=== PATIENT | female | born 1980 | race Caucasian/White ===

== ENCOUNTER 2016-10-18 18:54 | Emergency (ER) | payer MEDICARE ==
[2016-10-18 19:29] LABS: Basophils # (A) 0.1 k/uL (0-0.2); Basophils % (A) 1 %; CH 31.2; CHCM 34.2; Eosinophils # (A) 0.3 k/uL (0-0.7); Eosinophils % (A) 2 %; HCT 41.6 % (34.0-46.0); HDW 2.47; Luc # (Auto) 0.23; Luc % (Auto) 2; Lymphocytes # (A) 3.5 k/uL (1.0-4.8); Lymphocytes % (A) 31 %; MCH 30.9 pg (25.0-35.0); MCHC 33.7 g/dL (31.0-37.0); MCV 91.8 fL (80.0-100.0); Mean Platelet Volume 7.7; Monocytes # (A) 0.6 k/uL (0-1.0); Monocytes % (A) 5 %; Neutrophils # (A) 6.6 k/uL (1.3-7.7); Neutrophils % (A) 58 %; RBC 4.53 m/uL (3.80-5.40); RDW 13.2 % (11.5-15.5); WBC 11.3 k/uL (3.8-10.6); WBC (Perox) 11.61
--- NOTE | 2016-10-18 19:32 | ED ---
Chest Pain HPI - General Chief Complaint: Chest Pain Stated Complaint: chest pain Time Seen by Provider: 10/18/16 19:11 Source: patient, EMS Mode of arrival: EMS Limitations: no limitations - History of Present Illness Initial Comments: This patient is 36-year-old woman who presents to be evaluated for substernal chest pains that she describes as sharp. The pain is been present for about a week but became worse after 1 PM today when she had eaten. the patient does note that given the chest pains she has been having she had a stress test done 2 days ago at the [facility]. She was not told the results of this. The pain this afternoon has been moderate intensity, constant, without worsening or relieving factors. She has not had associated symptoms. MD Complaint: chest pain Onset/Timin -: week(s) Onset: after eating Pain Location: substernal Pain Radiation: none Severity: moderate Quality: sharp Consistency: constant Improves With: nothing Worsens With: nothing Treatments Prior to Arrival: aspirin, nitroglycerin - Related Data Home Medications Medication Instructions Recorded Confirmed Gabapentin [Neurontin] 300 mg PO HS 04/23/16 10/18/16 Ibuprofen [Motrin] 800 mg PO TID PRN 04/23/16 10/18/16 LORazepam [Ativan] 0.5 mg PO DAILY PRN 10/18/16 10/18/16 Levothyroxine Sodium [Synthroid] 125 mcg PO DAILY 10/18/16 10/18/16 Metoprolol Succinate (ER) [Toprol 25 mg PO DAILY 10/18/16 10/18/16 Xl] SUMAtriptan SUCCINATE [Imitrex] 100 mg PO BID PRN 10/18/16 10/18/16 Allergies Allergy/AdvReac Type Severity Reaction Status Date / Time house dust Allergy Itching Verified 10/18/16 19:58 shellfish derived [Shrimp] Allergy Anaphylaxis Verified 10/18/16 19:58 Review of Systems ROS Statement: Those systems with pertinent positive or pertinent negative responses have been documented in the HPI. ROS Other: All systems not noted in ROS Statement are negative. Constitutional: Denies: fever, chills Respiratory: Denies: cough, dyspnea Cardiovascular: Reports: chest pain. Denies: palpitations, edema, syncope Gastrointestinal: Denies: abdominal pain, nausea, vomiting Genitourinary: Denies: dysuria, hematuria Musculoskeletal: Denies: back pain Skin: Denies: rash Neurological: Denies: headache, weakness, numbness EKG Findings - EKG Results: EKG: interpreted by DEBBIE MURGUIA, sinus rhythm, normal axis, normal QRS, normal ST/ T, no acute changes Past Medical History Past Medical History: Thyroid Disorder Additional Past Medical History / Comment(s): charimalformation, graves disease History of Any Multi-Drug Resistant Organisms: None Reported Past Surgical History: Orthopedic Surgery, Tonsillectomy Additional Past Surgical History / Comment(s): thyroidectomy Past Psychological History: Anxiety, Depression Smoking Status: Current every day smoker Past Alcohol Use History: None Reported Past Drug Use History: None Reported General Exam Limitations: no limitations General appearance: alert, in no apparent distress Head exam: Present: atraumatic, normocephalic Eye exam: Present: normal appearance. Absent: scleral icterus, conjunctival injection Respiratory exam: Present: normal lung sounds bilaterally. Absent: respiratory distress, wheezes, rales, rhonchi, stridor Cardiovascular Exam: Present: regular rate, normal rhythm, normal heart sounds. Absent: systolic murmur, diastolic murmur, rubs, gallop GI/Abdominal exam: Present: soft. Absent: distended, tenderness, guarding, rebound, mass Extremities exam: Present: normal inspection, normal capillary refill. Absent: pedal edema, calf tenderness Back exam: Present: normal inspection. Absent: CVA tenderness (R), CVA tenderness (L) Neurological exam: Present: alert Skin exam: Present: warm, dry, intact, normal color. Absent: rash Course Vital Signs 10/18/16 10/18/16 10/18/16 18:55 19:05 20:00 Temperature 99.1 F 98.8 F Pulse Rate 83 85 84 Respiratory 20 18 16 Rate Blood Pressure 130/76 130/76 133/74 O2 Sat by Pulse 99 97 98 Oximetry Disposition Clinical Impression: Chest pain Disposition: HOME SELF-CARE Condition: Good Instructions: Chest Pain (ED) Referrals: Wendi Olguin MD [Primary Care Provider] - 1-2 days
[2016-10-18 19:45] LABS: ALT 26 U/L (9-52); AST 45 U/L (14-36); Alkaline Phosphatase 110 U/L (38-126); Amylase 55 U/L (30-110); Anion Gap 12 mmol/L; Blood Urea Nitrogen 10 mg/dL (7-17); Calcium 9.6 mg/dL (8.4-10.2); Carbon Dioxide 22 mmol/L (22-30); Chloride 108 mmol/L (98-107); Glucose 96 mg/dL (74-99); Magnesium 2.2 mg/dL (1.6-2.3); Non-African American GFR(MDRD) >60 (>60 ml/min/1.73 sqM); Potassium 5.1 mmol/L (3.5-5.1); Sodium 142 mmol/L (137-145); Total Bilirubin 0.9 mg/dL (0.2-1.3); Total Protein 7.6 g/dL (6.3-8.2)
[2016-10-18 19:49] LABS: Creatine Kinase 130 U/L (30-135)
--- NOTE | 2016-10-18 19:49 | XR ---
EXAMINATION TYPE: XR chest 1V portable DATE OF EXAM: 10/18/2016 7:32 PM COMPARISON: NONE HISTORY: Pain TECHNIQUE: Single frontal view of the chest is obtained. FINDINGS: EKG leads. There is no focal air space opacity, pleural effusion, or pneumothorax seen. T he cardiac silhouette size is within normal limits. The osseous structures are intact. IMPRESSION: No acute process.
[2016-10-18 19:54] LABS: INR 0.9 (<1.1); Partial Thromboplastin Time 24.4 sec (22.0-30.0); Prothrombin Time 9.8 sec (9.0-12.0)
[2016-10-18 20:03] LABS: Creatine Kinase MB 0.3 ng/mL (0.0-2.4); Troponin I <0.012 ng/mL (0.000-0.034)
[2016-10-18 20:44] VITALS: RESP 16
[2016-10-18] MEDS ORDERED: METOCLOPRAMIDE 5 MG/ML 2 ML VIAL IVP STA (20:50)
[2016-10-18 21:33] VITALS: BP 132/67; PULSE 78; TEMP 98
== END 2016-10-18 21:33 | disposition home or self-care (01) ==
LOC: EC 18:54
DX: R07.2 Precordial pain (principal); E07.9 Disorder of thyroid, unspecified; F17.200 Nicotine dependence, unspecified, uncomplicated; Z79.899 Other long term (current) drug therapy; Z91.013 Allergy to seafood; Z91.048 Other nonmedicinal substance allergy status
CPT/HCPCS: 99285; 96374; 36415; 93005; 85379; 80053; 82150; 82550; 82553; 83690; 83735; 84484; 85025; 85610; 85730; 71010; J2765

== ENCOUNTER 2016-12-21 18:38 | Emergency (ER) | payer MEDICARE ==
[2016-12-21] MEDS ORDERED: KETOROLAC 30 MG/ML 1 ML VIAL IVP STA (19:32)
--- NOTE | 2016-12-21 19:44 | ED ---
General Adult HPI - General Chief complaint: Back Pain/Injury Stated complaint: SOB-sent by [facility] Time Seen by Provider: 12/21/16 19:15 Source: patient, family, RN notes reviewed, old records reviewed Mode of arrival: wheelchair Limitations: no limitations - History of Present Illness Initial comments: Chief, and history of present illness is a 36-year-old female sent emergency room from [facility] for evaluation of chest pain. Patient reports 2 weeks ago she coughed really hard started having chest pain that is essentially reproducible to just below the left breast area. Deep breathing increases pain moving coughing increases pain splinting the area decreases the pain. No nausea no vomiting no sweats. She was sent here for labs. - Related Data Home Medications Medication Instructions Recorded Confirmed Gabapentin [Neurontin] 300 mg PO HS 04/23/16 10/18/16 Ibuprofen [Motrin] 800 mg PO TID PRN 04/23/16 10/18/16 LORazepam [Ativan] 0.5 mg PO DAILY PRN 10/18/16 10/18/16 Levothyroxine Sodium [Synthroid] 125 mcg PO DAILY 10/18/16 10/18/16 Metoprolol Succinate (ER) [Toprol 25 mg PO DAILY 10/18/16 10/18/16 Xl] SUMAtriptan SUCCINATE [Imitrex] 100 mg PO BID PRN 10/18/16 10/18/16 Previous Rx's Medication Instructions Recorded Hydrocodone/Acetaminophen [Pennington 1 each PO Q6HR PRN #10 tab 12/21/16 5-325] Ibuprofen [Motrin] 600 mg PO Q6HR PRN #20 tab 12/21/16 Allergies Allergy/AdvReac Type Severity Reaction Status Date / Time house dust Allergy Itching Verified 12/21/16 18:47 shellfish derived [Shrimp] Allergy Anaphylaxis Verified 12/21/16 18:47 Review of Systems ROS Statement: Those systems with pertinent positive or pertinent negative responses have been documented in the HPI. Review of systems no headache or visual acuity changes no sore throat no neck pain. She has discomfort to her left side of her chest which increases with deep breathing twisting turning palpation and coughing. No rashes noted. Patient can't remember injuring it but her friend did mention to his ago she coughed really hard and complained of pain at that time and has been complaining of discomfort since then. No GI or complaints or problems no problems with nausea and vomiting. No neuro deficits. All systems are reviewed. Past medical problems significant for hypothyroidism and the Ladonna malformation. Also with [facility] tonsillectomy thyroidectomy. Family history not significant. ALLERGIES to house dust and shellfish. Patient smokes daily strongly encouraged to stop. No alcohol use. Denies drug use. ROS Other: All systems not noted in ROS Statement are negative. Past Medical History Past Medical History: Thyroid Disorder Additional Past Medical History / Comment(s): charimalformation, graves disease History of Any Multi-Drug Resistant Organisms: None Reported Past Surgical History: Orthopedic Surgery, Tonsillectomy Additional Past Surgical History / Comment(s): thyroidectomy Past Psychological History: Anxiety, Depression Smoking Status: Current every day smoker Past Alcohol Use History: None Reported Past Drug Use History: None Reported General Exam - General Exam Comments Initial Comments: General: The patient is awake and alert, has reproducible chest pain on the left side of her chest especially on the left breast area. Ongoing for several weeks. Increased lately. Vital signs are temperature 99.1 pulse 93 respiratory rate 20 pulse ox 99% room air blood pressure 137/75 Eye: Pupils are equal, round and reactive to light, extra-ocular movements are intact ; there is normal conjunctiva bilaterally. No signs of icterus. Ears, nose, mouth and throat: There are moist mucous membranes and no oral lesions. Neck: The neck is supple, there is no tenderness , no anterior cervical lymphadenopathy. Cardiovascular: There is a regular rate and rhythm. No murmur, rub or gallop is appreciated. Chest pain can be created by taking a deep breath or coughing twisting turning palpating the left anterior chest wall or and the area just below the left breast. No rashes are noted. Early shingles was discussed. Same pain can be decreased by splinting the area with a flat hand. Respiratory: Lungs are clear to auscultation, respirations are non-labored, breath sounds are equal. No wheezes, stridor, rales, or rhonchi. Gastrointestinal: Soft, non-distended, non-tender abdomen without masses or organomegaly noted. There is no rebound or guarding present. No CVA tenderness. Bowel sounds are unremarkable. Back: There is no tenderness to palpation in the midline. There is no obvious deformity. No rashes noted. Musculoskeletal: Normal ROM, no tenderness, There is no pedal edema. There is no calf tenderness or swelling. Sensation intact. Pulses equal bilaterally 2+. Neurological: CN II-XII intact, There are no obvious motor or sensory deficits. Coordination appears grossly intact. Speech is normal. No neuro deficits Skin: Skin is warm and dry and no rashes or lesions are noted. Limitations: no limitations Course Vital Signs 12/21/16 12/21/16 18:44 20:28 Temperature 99.1 F Pulse Rate 93 95 Respiratory 20 18 Rate Blood Pressure 137/75 113/82 O2 Sat by Pulse 99 99 Oximetry EKG Findings - EKG Comments: EKG Findings:: EKG was done and reviewed at 1941 showing normal sinus rhythm no acute ST elevation no ectopy no ischemic changes. Ventricular rate of 88 IN interval is 160 QRS [address] QT [address] Gray this EKG Medical Decision Making - Medical Decision Making Medical decision making; patient's white count 14.9 hemoglobin 13 hematocrit 38. INR is 1.0 d-dimer 0.53 troponin less than 0.012. Total CK is 173. AST ALT was slightly elevated. Testing is 4.2 sugar is 111. BUN 12 creatinine 0.8 to with a GFR greater than 60. Chest x-ray was done and reviewed by radiologist his impression is heart and mediastinum are normal. Lungs are clear. There are chest leads. Diaphragm is normal. Bony thorax appears intact. Impression normal chest. No change. As read by Dr. Florian The patient had slight relief with IV Toradol. She requested more pain medication she was given IV Dilaudid. I discussed with the patient blood is seen, costochondritis, nondisplaced rib fracture etc. Inasmuch as the pain is very reproducible by deep breath or cough and palpation and relieved by splinting over the area she'll be discharged home with a prescription for ibuprofen 600 mg. Told follow with her family physician and return emergency room as needed. The patient will be given 1 dozen Pennington for breakthrough pain. - Lab Data Result diagrams: 12/21/16 19:40 12/21/16 19:40 Lab Results 12/21/16 12/21/16 12/21/16 Range/Units 19:40 19:40 19:40 WBC 14.9 H (3.8-10.6) k/uL RBC 4.25 (3.80-5.40) m/uL Hgb 13.6 (11.4-16.0) gm/dL Hct 38.5 (34.0-46.0) % MCV 90.5 (80.0-100.0) fL MCH 32.0 (25.0-35.0) pg MCHC 35.3 (31.0-37.0) g/dL RDW 13.6 (11.5-15.5) % Plt Count 276 (150-450) k/uL Neutrophils % 65 % Lymphocytes % 25 % Monocytes % 4 % Eosinophils % 3 % Basophils % 1 % Neutrophils # 9.7 H (1.3-7.7) k/uL Lymphocytes # 3.7 (1.0-4.8) k/uL Monocytes # 0.6 (0-1.0) k/uL Eosinophils # 0.5 (0-0.7) k/uL Basophils # 0.1 (0-0.2) k/uL PT (9.0-12.0) sec INR (<1.1) D-Dimer (<0.60) mg/L FEU Sodium 143 (137-145) mmol/L Potassium 4.2 (3.5-5.1) mmol/L Chloride 107 (98-107) mmol/L Carbon Dioxide 22 (22-30) mmol/L Anion Gap 14 mmol/L BUN 12 (7-17) mg/dL Creatinine 0.82 (0.52-1.04) mg/dL Est GFR (MDRD) Af Amer >60 (>60 ml/min/1.73 sqM) Est GFR (MDRD) Non-Af >60 (>60 ml/min/1.73 sqM) Glucose 111 H (74-99) mg/dL Calcium 9.9 (8.4-10.2) mg/dL Magnesium 2.1 (1.6-2.3) mg/dL Total Bilirubin 0.5 (0.2-1.3) mg/dL AST 37 H (14-36) U/L ALT 53 H (9-52) U/L Alkaline Phosphatase 95 (38-126) U/L Total Creatine Kinase 173 H (30-135) U/L CK-MB (CK-2) 0.8 (0.0-2.4) ng/mL CK-MB (CK-2) Rel Index 0.5 Troponin I <0.012 (0.000-0.034) ng/mL NT-Pro-B Natriuret Pep pg/mL Total Protein 7.6 (6.3-8.2) g/dL Albumin 4.5 (3.5-5.0) g/dL 12/21/16 12/21/16 Range/Units 19:40 19:40 WBC (3.8-10.6) k/uL RBC (3.80-5.40) m/uL Hgb (11.4-16.0) gm/dL Hct (34.0-46.0) % MCV (80.0-100.0) fL MCH (25.0-35.0) pg MCHC (31.0-37.0) g/dL RDW (11.5-15.5) % Plt Count (150-450) k/uL Neutrophils % % Lymphocytes % % Monocytes % % Eosinophils % % Basophils % % Neutrophils # (1.3-7.7) k/uL Lymphocytes # (1.0-4.8) k/uL Monocytes # (0-1.0) k/uL Eosinophils # (0-0.7) k/uL Basophils # (0-0.2) k/uL PT 10.2 (9.0-12.0) sec INR 1.0 (<1.1) D-Dimer 0.53 (<0.60) mg/L FEU Sodium (137-145) mmol/L Potassium (3.5-5.1) mmol/L Chloride (98-107) mmol/L Carbon Dioxide (22-30) mmol/L Anion Gap mmol/L BUN (7-17) mg/dL Creatinine (0.52-1.04) mg/dL Est GFR (MDRD) Af Amer (>60 ml/min/1.73 sqM) Est GFR (MDRD) Non-Af (>60 ml/min/1.73 sqM) Glucose (74-99) mg/dL Calcium (8.4-10.2) mg/dL Magnesium (1.6-2.3) mg/dL Total Bilirubin (0.2-1.3) mg/dL AST (14-36) U/L ALT (9-52) U/L Alkaline Phosphatase (38-126) U/L Total Creatine Kinase (30-135) U/L CK-MB (CK-2) (0.0-2.4) ng/mL CK-MB (CK-2) Rel Index Troponin I (0.000-0.034) ng/mL NT-Pro-B Natriuret Pep 35 pg/mL Total Protein (6.3-8.2) g/dL Albumin (3.5-5.0) g/dL Disposition Clinical Impression: Costochondritis Disposition: HOME SELF-CARE Condition: Fair Instructions: Costochondritis (ED) Additional Instructions: Use ibuprofen 600 mg with food. For breakthrough pain take one Pennington. Follow- up with family physician return emergency room as needed Prescriptions: Hydrocodone/Acetaminophen [Pennington 5-325] 1 each PO Q6HR PRN #10 tab PRN Reason: Pain Ibuprofen [Motrin] 600 mg PO Q6HR PRN #20 tab PRN Reason: Pain Referrals: Wendi Olguin MD [Primary Care Provider] - 1-2 days Time of Disposition: 21:05
[2016-12-21 20:01] LABS: Basophils # (A) 0.1 k/uL (0-0.2); Basophils % (A) 1 %; CH 31.2; CHCM 34.6; Eosinophils # (A) 0.5 k/uL (0-0.7); Eosinophils % (A) 3 %; HCT 38.5 % (34.0-46.0); HGB 13.6 gm/dL (11.4-16.0); Luc # (Auto) 0.34; Luc % (Auto) 2; Lymphocytes # (A) 3.7 k/uL (1.0-4.8); Lymphocytes % (A) 25 %; MCHC 35.3 g/dL (31.0-37.0); MCV 90.5 fL (80.0-100.0); Mean Platelet Volume 6.9; Monocytes # (A) 0.6 k/uL (0-1.0); Monocytes % (A) 4 %; Neutrophils # (A) 9.7 k/uL (1.3-7.7); Neutrophils % (A) 65 %; RBC 4.25 m/uL (3.80-5.40); RDW 13.6 % (11.5-15.5); WBC 14.9 k/uL (3.8-10.6); WBC (Perox) 14.58
[2016-12-21 20:10] LABS: ALT 53 U/L (9-52); AST 37 U/L (14-36); Alkaline Phosphatase 95 U/L (38-126); Anion Gap 14 mmol/L; Blood Urea Nitrogen 12 mg/dL (7-17); Calcium 9.9 mg/dL (8.4-10.2); Carbon Dioxide 22 mmol/L (22-30); Chloride 107 mmol/L (98-107); Glucose 111 mg/dL (74-99); Magnesium 2.1 mg/dL (1.6-2.3); Non-African American GFR(MDRD) >60 (>60 ml/min/1.73 sqM); Potassium 4.2 mmol/L (3.5-5.1); Sodium 143 mmol/L (137-145); Total Bilirubin 0.5 mg/dL (0.2-1.3); Total Protein 7.6 g/dL (6.3-8.2)
--- NOTE | 2016-12-21 20:15 | XR ---
EXAMINATION TYPE: XR chest 2V DATE OF EXAM: 12/21/2016 8:03 PM COMPARISON: 10/18/2016 HISTORY: Chest pain TECHNIQUE: Frontal and lateral views of the chest are obtained. FINDINGS: Heart and mediastinum are normal. Lungs are clear. There are chest leads. Diaphragm is nor mal. Bony thorax appears intact. IMPRESSION: Normal chest. No change.
[2016-12-21 20:22] LABS: Prothrombin Time 10.2 sec (9.0-12.0)
[2016-12-21 20:29] VITALS: RESP 18
[2016-12-21 20:30] LABS: Creatine Kinase 173 U/L (30-135)
[2016-12-21 20:43] LABS: Creatine Kinase MB 0.8 ng/mL (0.0-2.4); Troponin I <0.012 ng/mL (0.000-0.034)
[2016-12-21] MEDS ORDERED: HYDROmorphone 1 MG/ML 1 ML SYRINGE IVP STA (20:43)
[2016-12-21 21:45] VITALS: BP 128/77; PULSE 73; TEMP 97.5
== END 2016-12-21 21:41 | disposition home or self-care (01) ==
LOC: EC 18:38
DX: M94.0 Chondrocostal junction syndrome [Tietze] (principal); E07.9 Disorder of thyroid, unspecified; F17.200 Nicotine dependence, unspecified, uncomplicated; Z79.899 Other long term (current) drug therapy; Z91.013 Allergy to seafood; Z91.048 Other nonmedicinal substance allergy status
CPT/HCPCS: 36415; 85379; 83880; 80053; 82550; 82553; 83735; 84484; 85025; 85610; 71020; 99285; 96374; 96375; J1885; J1170; 93005

== ENCOUNTER → 2017-02-13 | Outpatient (CLI) | payer MEDICARE ==
--- NOTE | 2017-02-13 08:38 | MR ---
EXAMINATION TYPE: MR brain/cspine wo DATE OF EXAM: 02/13/2017 COMPARISON: Previous MRI of the brain dated 09/06/2015 and previous MRI of the cervical spine dated 01/19/2016. HISTORY: Chiari I malformation. Multiplanar, multiecho imaging of the brain and cervical spine was obtained on a 3 Margo magnet. FINDINGS: BRAIN: There is a Chiari I malformation. The cerebellar tonsils extend approximately 7 mm below the f oramen magnum. This appears slightly improved slightly from previous when the tonsils extend 8 mm bel ow the foramen magnum. Midline structures are otherwise unremarkable. Echoplanar diffusion imaging does not demonstrate any restricted diffusion. There are normal vascular flow voids. The orbits appear normal. There is no evidence of a CP angle mass lesion There is no focal lesion, mass effect or midline shift identified. I do not see evidence of intracran ial blood. CERVICAL SPINE: Prevertebral soft tissues are normal. Vertebral body height and alignment are maintained. Chiari I malformation is redemonstrated with cere bellar tonsils extending 7 mm below the foramen magnum. Cord signal is normal. At C2-3 and C3-4, no definite abnormality is demonstrated. At C4-5, there is a broad-based disc protrusion deforming the thecal sac with cord contact but withou t compression there is disc space loss.. There is bilateral intervertebral foraminal narrowing. The f acet and uncovertebral joints are unremarkable. At C5-6, there is a broad-based disc protrusion deforming the thecal sac with cord contact and mild c ompression of the spinal cord. There is disc space loss There is bilateral intervertebral foraminal n arrowing. The facets are unremarkable. There is minimal uncovertebral joint disease. At C6-7, there is disc space loss. There is bilateral intervertebral foraminal narrowing, worse on th e left than the right. There is a left paracentral disc protrusion deforming the thecal sac with cord contact and cord compression. The facets are unremarkable. There is mild uncovertebral joint disease . At C7-T1, there is a right paracentral disc protrusion deforming the thecal sac with cord contact and minimal compression. Intervertebral foramina appear well maintained. The facets are unremarkable. IMPRESSION: 1. CHIARI I MALFORMATION. 2. MULTIPLE DISC PROTRUSIONS EXTENDING FROM C4-5 TO C7-T1. 3. MULTILEVEL INTERVERTEBRAL FORAMINAL NARROWING.
== END ==
LOC: RADMRIMAIN 06:55
PROVIDERS: ATTEND Neurological Surgery
DX: Q07.9 Congenital malformation of nervous system, unspecified (principal); M50.21 Other cervical disc displacement, high cervical region; M51.27 Other intervertebral disc displacement, lumbosacral region; M51.24 Other intervertebral disc displacement, thoracic region; M99.71 Connective tissue and disc stenosis of intervertebral foramina of cervical region; G93.5 Compression of brain
CPT/HCPCS: 70551; 72141

== ENCOUNTER 2017-02-26 19:59 | Emergency (ER) | payer MEDICARE ==
[2017-02-26] MEDS ORDERED: SODIUM CHLORIDE 0.9% 1,000 ML IV STA (22:16)
[2017-02-26] MEDS ORDERED: diphenhydrAMINE 50 MG/ML 1 ML VIAL IVP STA (22:16)
[2017-02-26] MEDS ORDERED: METOCLOPRAMIDE 5 MG/ML 2 ML VIAL IVP STA (22:16)
[2017-02-26] MEDS ORDERED: KETOROLAC 30 MG/ML 1 ML VIAL IVP STA (22:16)
[2017-02-26] MEDS ORDERED: ORPHENADRINE 30 MG/ML 2 ML VIAL IVP STA (22:17)
--- NOTE | 2017-02-26 23:26 | ED ---
Headache HPI - General Chief Complaint: Headache Stated Complaint: Headache Time Seen by Provider: 02/26/17 22:05 Source: RN notes reviewed, old records reviewed Mode of arrival: ambulatory Limitations: no limitations - History of Present Illness MD Complaint: headache Location: right, temporal, facial Severity: moderate Severity scale (1-10): 6 Quality: aching, throbbing Consistency: colicky Improves With: medication Worsens With: movement of head/neck Associated Symptoms: nausea, photophobia, sensitivity to sound - Related Data Home Medications Medication Instructions Recorded Confirmed Gabapentin [Neurontin] 300 mg PO HS 04/23/16 02/26/17 Ibuprofen [Motrin] 800 mg PO TID PRN 04/23/16 02/26/17 LORazepam [Ativan] 0.5 mg PO DAILY PRN 10/18/16 02/26/17 Levothyroxine Sodium [Synthroid] 125 mcg PO DAILY 10/18/16 02/26/17 Metoprolol Succinate (ER) [Toprol 25 mg PO DAILY 10/18/16 02/26/17 Xl] Hydrocodone/Acetaminophen [Coleman 0.5 tab PO BID 02/26/17 02/26/17 5-325] Allergies Allergy/AdvReac Type Severity Reaction Status Date / Time house dust Allergy Itching Verified 02/26/17 22:30 shellfish derived [Shrimp] Allergy Anaphylaxis Verified 02/26/17 22:30 Review of Systems ROS Statement: Those systems with pertinent positive or pertinent negative responses have been documented in the HPI. ROS Other: All systems not noted in ROS Statement are negative. Past Medical History Past Medical History: Thyroid Disorder Additional Past Medical History / Comment(s): charimalformation, graves disease History of Any Multi-Drug Resistant Organisms: None Reported Past Surgical History: Orthopedic Surgery, Tonsillectomy Additional Past Surgical History / Comment(s): thyroidectomy Past Psychological History: Anxiety, Depression Smoking Status: Current every day smoker Past Alcohol Use History: None Reported Past Drug Use History: None Reported General Exam Limitations: no limitations General appearance: alert, in no apparent distress Head exam: Present: atraumatic, normocephalic, normal inspection Eye exam: Present: normal appearance, PERRL, EOMI. Absent: scleral icterus, conjunctival injection, periorbital swelling ENT exam: Present: normal exam Neck exam: Present: normal inspection. Absent: tenderness, meningismus, lymphadenopathy Respiratory exam: Present: normal lung sounds bilaterally. Absent: respiratory distress, wheezes, rales, rhonchi, stridor Cardiovascular Exam: Present: regular rate, normal rhythm, normal heart sounds. Absent: systolic murmur, diastolic murmur, rubs, gallop, clicks GI/Abdominal exam: Present: soft, normal bowel sounds. Absent: distended, tenderness, guarding, rebound, rigid Extremities exam: Present: normal inspection, full ROM, normal capillary refill. Absent: tenderness, pedal edema, joint swelling, calf tenderness Back exam: Present: normal inspection Neurological exam: Present: alert, oriented X3, CN II-XII intact Psychiatric exam: Present: normal affect, normal mood Skin exam: Present: warm, dry, intact, normal color. Absent: rash Course Vital Signs 02/26/17 02/26/17 20:20 23:36 Temperature 98.2 F 97.7 F Pulse Rate 88 78 Respiratory 18 16 Rate Blood Pressure 135/94 127/79 O2 Sat by Pulse 100 100 Oximetry - Reevaluation(s) Reevaluation #1: 02/27/17 00:22 She was reevaluated and states that she's had improvement of her symptoms with Reglan and Benadryl and Toradol. Discussed that she is follow-up with her primary care physician in regards to her migraines and headaches. Discussed she can take Motrin Tylenol and Imitrex for pain. Medical Decision Making - Lab Data Result diagrams: 02/26/17 23:31 02/26/17 23:31 Lab Results 02/26/17 02/26/17 Range/Units 23:31 23:31 WBC 13.8 H (3.8-10.6) k/uL RBC 4.27 (3.80-5.40) m/uL Hgb 13.5 (11.4-16.0) gm/dL Hct 40.7 (34.0-46.0) % MCV 95.3 (80.0-100.0) fL MCH 31.7 (25.0-35.0) pg MCHC 33.3 (31.0-37.0) g/dL RDW 15.0 (11.5-15.5) % Plt Count 302 (150-450) k/uL Neutrophils % 61 % Lymphocytes % 29 % Monocytes % 4 % Eosinophils % 3 % Basophils % 1 % Neutrophils # 8.5 H (1.3-7.7) k/uL Lymphocytes # 4.1 (1.0-4.8) k/uL Monocytes # 0.6 (0-1.0) k/uL Eosinophils # 0.4 (0-0.7) k/uL Basophils # 0.1 (0-0.2) k/uL Sodium 142 (137-145) mmol/L Potassium 4.1 (3.5-5.1) mmol/L Chloride 108 H (98-107) mmol/L Carbon Dioxide 22 (22-30) mmol/L Anion Gap 12 mmol/L BUN 10 (7-17) mg/dL Creatinine 0.80 (0.52-1.04) mg/dL Est GFR (MDRD) Af Amer >60 (>60 ml/min/1.73 sqM) Est GFR (MDRD) Non-Af >60 (>60 ml/min/1.73 sqM) Glucose 111 H (74-99) mg/dL Calcium 9.6 (8.4-10.2) mg/dL C-Reactive Protein 15.7 H (<10.0) mg/L Disposition Clinical Impression: Headache, Left facial pain Disposition: HOME SELF-CARE Condition: Good Instructions: Acute Headache (ED) Additional Instructions: Patient advised to follow-up with her primary care physician in regards to frequent headaches. Also Patient should following up with a neurologist. Patient to take prescribed pain medication. Return to the emergency department if any alarming signs or symptoms occur. Referrals: Wendi Olguin MD [Primary Care Provider] - 1-2 days Mekhi Meier MD [STAFF PHYSICIAN] - 1-2 days Time of Disposition: 00:23
[2017-02-26 23:37] VITALS: RESP 16
[2017-02-26 23:49] LABS: Basophils # (A) 0.1 k/uL (0-0.2); Basophils % (A) 1 %; CHCM 33.7; Eosinophils # (A) 0.4 k/uL (0-0.7); Eosinophils % (A) 3 %; HCT 40.7 % (34.0-46.0); HDW 2.32; HGB 13.5 gm/dL (11.4-16.0); Luc # (Auto) 0.22; Luc % (Auto) 2; Lymphocytes # (A) 4.1 k/uL (1.0-4.8); Lymphocytes % (A) 29 %; MCH 31.7 pg (25.0-35.0); MCHC 33.3 g/dL (31.0-37.0); MCV 95.3 fL (80.0-100.0); Mean Platelet Volume 7.7; Monocytes # (A) 0.6 k/uL (0-1.0); Monocytes % (A) 4 %; Neutrophils # (A) 8.5 k/uL (1.3-7.7); Neutrophils % (A) 61 %; RBC 4.27 m/uL (3.80-5.40); WBC 13.8 k/uL (3.8-10.6); WBC (Perox) 13.52
[2017-02-27] LABS: Anion Gap 12 mmol/L; Blood Urea Nitrogen 10 mg/dL (7-17); C Reactive Protein 15.7 mg/L (<10.0); Calcium 9.6 mg/dL (8.4-10.2); Carbon Dioxide 22 mmol/L (22-30); Chloride 108 mmol/L (98-107); Glucose 111 mg/dL (74-99); Non-African American GFR(MDRD) >60 (>60 ml/min/1.73 sqM); Potassium 4.1 mmol/L (3.5-5.1); Sodium 142 mmol/L (137-145)
[2017-02-27 00:43] LABS: Erythrocyte Sedimentation Rate 11 mm/hr (0-20)
[2017-02-27 00:55] VITALS: BP 130/81; PULSE 82; TEMP 98.3
== END 2017-02-27 00:54 | disposition home or self-care (01) ==
LOC: EC 19:59
DX: R51 Headache (principal); R11.0 Nausea; H53.149 Visual discomfort, unspecified; E07.9 Disorder of thyroid, unspecified; F32.9 Major depressive disorder, single episode, unspecified; F41.9 Anxiety disorder, unspecified; F17.200 Nicotine dependence, unspecified, uncomplicated; Z79.891 Long term (current) use of opiate analgesic; Z79.899 Other long term (current) drug therapy; Z91.013 Allergy to seafood; Z91.09 Other allergy status, other than to drugs and biological substances
CPT/HCPCS: 99284; 96374; 96375 ×3; 96361; 36415; 80048; 85652; 85025; 86140; J1200; J2360; J2765; J1885

== ENCOUNTER → 2017-05-01 | Outpatient (CLI) | payer MEDICARE ==
[2017-05-01 14:38] LABS: CH 31.9; CHCM 33.1; HCT 39.3 % (34.0-46.0); HDW 2.32; HGB 12.8 gm/dL (11.4-16.0); MCH 31.7 pg (25.0-35.0); MCHC 32.6 g/dL (31.0-37.0); MCV 97.1 fL (80.0-100.0); Mean Platelet Volume 7.6; RBC 4.05 m/uL (3.80-5.40); RDW 14.3 % (11.5-15.5); WBC 10.3 k/uL (3.8-10.6)
[2017-05-01 14:52] LABS: ALT 55 U/L (9-52); AST 26 U/L (14-36); Alkaline Phosphatase 121 U/L (38-126); Anion Gap 12 mmol/L; Blood Urea Nitrogen 11 mg/dL (7-17); Calcium 9.4 mg/dL (8.4-10.2); Carbon Dioxide 22 mmol/L (22-30); Chloride 106 mmol/L (98-107); Glucose 108 mg/dL (74-99); Non-African American GFR(MDRD) >60 (>60 ml/min/1.73 sqM); Potassium 4.4 mmol/L (3.5-5.1); Sodium 140 mmol/L (137-145); Total Bilirubin 0.2 mg/dL (0.2-1.3)
== END | disposition home or self-care (01) ==
LOC: LABWHC1 14:09
PROVIDERS: ATTEND Internal Medicine Endocrinology, Diabetes & Metabolism
DX: E05.90 Thyrotoxicosis, unspecified without thyrotoxic crisis or storm (principal); R53.83 Other fatigue
CPT/HCPCS: 36415; 80053; 82607; 83970; 84443; 85027

== ENCOUNTER 2017-06-01 19:12 | Emergency (ER) | payer MEDICARE ==
[2017-06-01] MEDS ORDERED: diphenhydrAMINE 50 MG/ML 1 ML VIAL IVP STA (20:40)
[2017-06-01] MEDS ORDERED: SODIUM CHLORIDE 0.9% 1,000 ML IV ONE (20:40)
[2017-06-01] MEDS ORDERED: KETOROLAC 30 MG/ML 1 ML VIAL IVP STA (20:40)
[2017-06-01] MEDS ORDERED: METOCLOPRAMIDE 5 MG/ML 2 ML VIAL IVP STA (20:40)
--- NOTE | 2017-06-01 20:54 | ED ---
Headache HPI - General Chief Complaint: Headache Stated Complaint: Headache, blurred vision Time Seen by Provider: 06/01/17 20:16 Mode of arrival: wheelchair Limitations: no limitations - History of Present Illness Initial Comments: 36 year-old female patient with past medical history significant for Chiari malformation and migraine headaches presents to the emergency department today for complaints of headache. Patient states that she has headaches daily, states that usually her pattern consistent with a left-sided headache with radiation of pain into her face. She states with her headache she generally does have nausea, sound, in light sensitivity. She states today the headache and compresses her whole head, but is worse on the right side. She states that it feels like an intense pressure type pain. She states that she feels like her head is "going to explode". He states that this pain started approximately 2 hours ago. She states that she has never had a headache similar to this in the past. She states she has been very nauseated today and is experiencing light and sound sensitivity. Reports blurred, foggy vision. Her significant other states that her gait is disturbed. She states that she is scheduled to undergo a decompression of her brain for an 8 millimeter herniation with a doctor at [facility] on Friday. Patient denies any recent rash, fever , chills, shortness breath, chest pain, abdominal pain, vomiting, diarrhea, constipation, back pain, numbness, tingling, dizziness, weakness, hematuria, dysuria, urinary urgency, urinary frequency, or any other complaints. - Related Data Home Medications Medication Instructions Recorded Confirmed LORazepam [Ativan] 0.5 mg PO DAILY PRN 10/18/16 06/01/17 Levothyroxine Sodium [Synthroid] 125 mcg PO DAILY 10/18/16 06/01/17 Metoprolol Succinate (ER) [Toprol 25 mg PO DAILY 10/18/16 06/01/17 Xl] Hydrocodone/Acetaminophen [[place] 0.5 tab PO BID 02/26/17 06/01/17 5-325] Omeprazole 20 mg PO DAILY 06/01/17 06/01/17 SUMAtriptan SUCCINATE [Imitrex] 100 mg PO DAILY PRN 06/01/17 06/01/17 Zolpidem Tartrate [Ambien] 10 mg PO HS PRN 06/01/17 06/01/17 carBAMazepine [TEGretol] 200 mg PO BID 06/01/17 06/01/17 diphenhydrAMINE HCL [Benadryl] 25 mg PO DAILY PRN 06/01/17 06/01/17 Allergies Allergy/AdvReac Type Severity Reaction Status Date / Time house dust Allergy Itching Verified 06/01/17 20:19 shellfish derived [Shrimp] Allergy Anaphylaxis Verified 06/01/17 20:19 Review of Systems ROS Statement: Those systems with pertinent positive or pertinent negative responses have been documented in the HPI. ROS Other: All systems not noted in ROS Statement are negative. Past Medical History Past Medical History: Thyroid Disorder Additional Past Medical History / Comment(s): charimalformation, graves disease History of Any Multi-Drug Resistant Organisms: None Reported Past Surgical History: Orthopedic Surgery, Tonsillectomy Additional Past Surgical History / Comment(s): thyroidectomy Past Psychological History: Anxiety, Depression Smoking Status: Current every day smoker Past Alcohol Use History: None Reported Past Drug Use History: None Reported General Exam Limitations: no limitations General appearance: alert, in distress (Mild distress related to pain), other ( This is a well-developed, well-nourished adult female patient in mild distress related to pain. Vital signs upon presentation are temperature 97.8F, pulse 95 , respirations 20, blood pressure 140/83, pulse ox 100% on room air.) Head exam: Present: atraumatic, normocephalic, normal inspection Eye exam: Present: normal appearance, PERRL, EOMI. Absent: scleral icterus, conjunctival injection, nystagmus, periorbital swelling Pupils: Present: normal accommodation ENT exam: Present: normal exam, normal oropharynx, mucous membranes moist, TM's normal bilaterally Neck exam: Present: normal inspection. Absent: tenderness, meningismus, lymphadenopathy Respiratory exam: Present: normal lung sounds bilaterally. Absent: respiratory distress, wheezes, rales, rhonchi, stridor Cardiovascular Exam: Present: regular rate, normal rhythm, normal heart sounds. Absent: systolic murmur, diastolic murmur, rubs, gallop, clicks GI/Abdominal exam: Present: soft, normal bowel sounds. Absent: distended, tenderness, guarding, rebound, rigid Neurological exam: Present: alert, oriented X3, CN II-XII intact, other ( Strength in all 4 extremities is 4/5.) Psychiatric exam: Present: normal affect, normal mood Skin exam: Present: warm, dry, intact, normal color. Absent: rash Course Vital Signs 06/01/17 06/01/17 19:34 21:57 Temperature 97.8 F 98.5 F Pulse Rate 95 81 Respiratory 20 18 Rate Blood Pressure 140/83 113/62 O2 Sat by Pulse 100 100 Oximetry Medical Decision Making - Medical Decision Making 36 year-old female patient presented to the emergency department today for evaluation of headache. Patient does have extensive history of migraine headache with Chiari malformation, she states his headache was worse than her usual. Labs were reviewed and were unremarkable. CT of the brain without contrast showed Chiari type I malformation stable from MRI dated 02/13/2017. No acute intracranial abnormalities were noted. Patient physical exam is unremarkable, neurologically patient is intact. She did have improvement of symptoms with administration of medications and IV fluids here in the department. She will be discharged home at this time to follow-up with her neurologist, she has a procedure scheduled for Friday, she is urged to keep this appointment. She is instructed to continue her home medications as directed. She is instructed to return here immediately for any new, worsening, or concerning symptoms. She verbalizes understanding and agrees with this plan. - Lab Data Result diagrams: 06/01/17 21:00 06/01/17 21:00 Lab Results 06/01/17 06/01/17 Range/Units 21:00 21:00 WBC 11.4 H (3.8-10.6) k/uL RBC 4.65 (3.80-5.40) m/uL Hgb 14.5 (11.4-16.0) gm/dL Hct 43.9 (34.0-46.0) % MCV 94.5 (80.0-100.0) fL MCH 31.2 (25.0-35.0) pg MCHC 33.0 (31.0-37.0) g/dL RDW 13.7 (11.5-15.5) % Plt Count 283 (150-450) k/uL Neutrophils % 62 % Lymphocytes % 29 % Monocytes % 4 % Eosinophils % 3 % Basophils % 1 % Neutrophils # 7.1 (1.3-7.7) k/uL Lymphocytes # 3.3 (1.0-4.8) k/uL Monocytes # 0.5 (0-1.0) k/uL Eosinophils # 0.3 (0-0.7) k/uL Basophils # 0.1 (0-0.2) k/uL Sodium 141 (137-145) mmol/L Potassium 4.3 (3.5-5.1) mmol/L Chloride 106 (98-107) mmol/L Carbon Dioxide 25 (22-30) mmol/L Anion Gap 10 mmol/L BUN 10 (7-17) mg/dL Creatinine 0.82 (0.52-1.04) mg/dL Est GFR (MDRD) Af Amer >60 (>60 ml/min/1.73 sqM) Est GFR (MDRD) Non-Af >60 (>60 ml/min/1.73 sqM) Glucose 98 (74-99) mg/dL Calcium 10.0 (8.4-10.2) mg/dL Total Bilirubin 0.2 (0.2-1.3) mg/dL AST 25 (14-36) U/L ALT 38 (9-52) U/L Alkaline Phosphatase 115 (38-126) U/L Total Protein 7.9 (6.3-8.2) g/dL Albumin 4.6 (3.5-5.0) g/dL - Radiology Data Radiology results: report reviewed, image reviewed CT of the brain without contrast report reviewed in its entirety, impression by Dr. Camacho shows Chiari 1 malformation, stable from 02/13/2017. No acute intracranial process. Disposition Clinical Impression: Migraine Disposition: HOME SELF-CARE Condition: Good Instructions: Migraine Headache (ED) Additional Instructions: Continue your home pain medications. Keep your appointment with Dr. Bain on Friday. Follow-up with her primary care physician for recheck in 1-2 days. Return here immediately for any new, worsening, or concerning symptoms. Referrals: Wendi Olguin MD [Primary Care Provider] - 1-2 days Time of Disposition: 22:37
[2017-06-01] MEDS ORDERED: HYDROmorphone 1 MG/ML 1 ML SYRINGE IVP STA ×2 (21:10→22:37)
[2017-06-01 21:12] LABS: Basophils # (A) 0.1 k/uL (0-0.2); Basophils % (A) 1 %; CH 31.2; CHCM 33.2; Eosinophils # (A) 0.3 k/uL (0-0.7); Eosinophils % (A) 3 %; HCT 43.9 % (34.0-46.0); HDW 2.28; HGB 14.5 gm/dL (11.4-16.0); Luc % (Auto) 1; Lymphocytes # (A) 3.3 k/uL (1.0-4.8); Lymphocytes % (A) 29 %; MCH 31.2 pg (25.0-35.0); MCV 94.5 fL (80.0-100.0); Mean Platelet Volume 6.7; Monocytes # (A) 0.5 k/uL (0-1.0); Monocytes % (A) 4 %; Neutrophils # (A) 7.1 k/uL (1.3-7.7); Neutrophils % (A) 62 %; RBC 4.65 m/uL (3.80-5.40); RDW 13.7 % (11.5-15.5); WBC 11.4 k/uL (3.8-10.6); WBC (Perox) 11.25
[2017-06-01 21:25] LABS: ALT 38 U/L (9-52); AST 25 U/L (14-36); Alkaline Phosphatase 115 U/L (38-126); Anion Gap 10 mmol/L; Blood Urea Nitrogen 10 mg/dL (7-17); Carbon Dioxide 25 mmol/L (22-30); Chloride 106 mmol/L (98-107); Glucose 98 mg/dL (74-99); Non-African American GFR(MDRD) >60 (>60 ml/min/1.73 sqM); Potassium 4.3 mmol/L (3.5-5.1); Sodium 141 mmol/L (137-145); Total Bilirubin 0.2 mg/dL (0.2-1.3); Total Protein 7.9 g/dL (6.3-8.2)
--- NOTE | 2017-06-01 21:49 | CT ---
EXAMINATION TYPE: CT brain wo con DATE OF EXAM: 06/01/2017 COMPARISON: MRI 02/13/2017 INDICATION: Severe head pain and pressure today DLP: 981.7 mGycm, Automated exposure control for dose reduction was used. CONTRAST: None CT of the brain is performed utilizing 3 mm thick sections through the posterior fossa and 3 mm thick sections through the remaining calvarium. Study is performed within 24 hours of arrival to the hosp ital. No abnormal hyperdensity is present to suggest an acute intracranial hemorrhage. No mass lesion is evident. It is noted that the tonsils are low-lying correlate with the patient's re ported Chiari I malformation from the MRI dated 02/13/2017. No acute infarcts are evident. Ventricles and sulci are appropriate for the patient age. Paranasal sinuses and mastoid air cells within the [id number] are clear. IMPRESSIONS: 1. Chiari I malformation, stable from 02/13/2017. 2. No acute intracranial process.
[2017-06-01 22:02] VITALS: BP 113/62; PULSE 81; RESP 18; TEMP 98.5
== END 2017-06-01 22:54 | disposition home or self-care (01) ==
LOC: EC 19:12
DX: G43.909 Migraine, unspecified, not intractable, without status migrainosus (principal); G93.5 Compression of brain; E05.00 Thyrotoxicosis with diffuse goiter without thyrotoxic crisis or storm; F32.9 Major depressive disorder, single episode, unspecified; F17.200 Nicotine dependence, unspecified, uncomplicated; Z79.899 Other long term (current) drug therapy; Z91.013 Allergy to seafood; Z91.048 Other nonmedicinal substance allergy status
CPT/HCPCS: 36415; 80053; 85025; 70450; 99284; 96374; 96375 ×2; 96376; 96361 ×2; J1200; J2765; J1170

== ENCOUNTER → 2017-08-29 | Outpatient (CLI) | payer MEDICARE ==
--- NOTE | 2017-09-01 08:16 | MR ---
MRI CERVICAL SPINE: CLINICAL HISTORY: Cervicalgia per order. Headache with neck pain for 5 years ago going into jaw per p atient. TECHNIQUE: Multiplanar, multisequence imaging of the cervical spine is performed without IV contrast. COMPARISON: MRI cervical spine February 13, 2017. FINDINGS: Sagittal images of the cervical spine show the craniocervical junction to now appear within normal limits. There has been interval surgical correction with posterior surgical change. The cervi anna and upper thoracic spinal cord is normal in caliber and signal. Vertebral alignment is stable an d straightened. The vertebral body and intravertebral disk heights are normal. There is persistent l christian segment spinal canal stenosis presumed congenital with multilevel posterior herniations effacing the anterior thecal sac C4-C5 through C7-T1 level on sagittal images. No significant change from prio r. Overall heterogeneity of bone marrow signal intensity remains present. No significant spurring is redemonstrated. Axial images at C2-C3 level redemonstrates left foraminal disc protrusion causing mild left-sided ne ural foraminal narrowing. Right-sided neural foramen is patent. No significant change from prior. Axial images at C3-C4 level showed broad posterior disc protrusion mildly effacing the anterior theca l sac and causing mild left greater than right neural foraminal narrowing. No significant change from prior. Axial images at C4-C5 level show more prominent broad-based posterior disc protrusion effaces the ant erior thecal sac of the ventral surface of spinal cord and causing moderate to advanced bilateral gigi ral foraminal narrowing. No significant change from prior. Axial images at C5-C6 level shows broad-based central disc protrusion effacing anterior thecal sac at the ventral surface of the spinal cord which is flattened and causing moderate to advanced bilateral neural foraminal narrowing. No significant change from prior. Axial images at C6-C7 level demonstrates broad-based left paracentral disc protrusion effacing the an terolateral thecal sac up to ventral surface of spinal cord which is flattened and causing moderate b ilateral neural foraminal narrowing. No significant change from prior. Axial images at C7-T1 level show focal right paracentral disc protrusion effacing the anterior thecal sac up to ventral surface of spinal cord on axial image 8, bilateral neuroforamina are patent. No si gnificant change from prior study is seen. IMPRESSION: Interval successful decompression of Chiari type I malformation. Stable congenital spinal canal stenosis with prominent multilevel disc herniations quite pronounced for patient's age redemon strated as detailed above causing significant spinal canal effacement and stenosis at several levels.
== END | disposition home or self-care (01) ==
LOC: RADMRIMAIN 07:19
PROVIDERS: ATTEND Psychiatry & Neurology Neurology
DX: M48.02 Spinal stenosis, cervical region (principal); M50.21 Other cervical disc displacement, high cervical region; G93.5 Compression of brain; Z91.013 Allergy to seafood
CPT/HCPCS: 72141

== ENCOUNTER → 2017-09-08 | Outpatient (CLI) | payer MEDICARE ==
--- NOTE | 2017-09-08 23:30 | MR ---
EXAMINATION TYPE: MR tmj wo con DATE OF EXAM: 09/08/2017 COMPARISON: NONE HISTORY: Forgetful, Chiari Decompression, Left facial pain Standard multiplanar, multisequence MRI departmental protocol Multiplanar multiecho imaging of the temporomandibular joints was performed without contrast. There a re images in the open and closed mouth position. FINDINGS: The mandibular condyles have normal contour. Articular surfaces appear smooth. The mandibul ar fossa appears normal. The left and right menisci have normal configuration. I do not see evidence of a tear. Menisci are in normal position on the closed mouth views. On the open-mouth views there is normal movement of the mandibular condyles anteriorly. The menisci a ppear in good position without abnormal subluxation. There is no evidence of a tear. IMPRESSION: Normal MR scan of the temporomandibular joints. No evidence of meniscal tear.
== END ==
LOC: RADMRIMAIN 20:36
PROVIDERS: ATTEND Psychiatry & Neurology Neurology
DX: M26.609 Unspecified temporomandibular joint disorder, unspecified side (principal); Z91.013 Allergy to seafood; R51 Headache
CPT/HCPCS: 70336

== ENCOUNTER → 2017-10-08 | Outpatient (CLI) | payer MEDICARE | END | disposition home or self-care (01) | LOC: LABWHC1 14:26 | PROVIDERS: ATTEND Internal Medicine Rheumatology | DX: R89.9 Unspecified abnormal finding in specimens from other organs, systems and tissues (principal) | CPT/HCPCS: 36415; 84075 ==

== ENCOUNTER → 2018-01-26 | Outpatient (CLI) | payer MEDICARE | END | disposition home or self-care (01) | LOC: RADUSWWP 07:32 | PROVIDERS: ATTEND Obstetrics & Gynecology | DX: Z53.9 Procedure and treatment not carried out, unspecified reason (principal) ==

== ENCOUNTER → 2018-01-26 | Outpatient (CLI) | payer MEDICARE ==
--- NOTE | 2018-01-26 09:00 | US ---
EXAMINATION TYPE: US liver DATE OF EXAM: 01/26/2018 COMPARISON: NONE CLINICAL HISTORY: R94.5 Abnormal results of liver function studies. EXAM MEASUREMENTS: Liver Length: 19.2 cm Gallbladder Wall: 0.1 cm CBD: 0.4 cm Right Kidney: 10.1 x 5.5 x 4.1 cm Pancreas: wnl, partially obscured by bowel gas Liver: Increased attenuation with probable focal fatty sparing near GB and caudate lobe. This is dem onstrated as a geographic area of hypoattenuation in segment IVb of the liver. Overall increased hepa tic echotexture limits evaluation for hepatic masses. Gallbladder: wnl Evidence for sonographic Harkins's sign: no CBD: wnl Right Kidney: wnl IMPRESSION: Heterogenous and hyperechoic hepatic echotexture most commonly relates to underlying hepa tic steatosis. Geographic area of hypoattenuation near the gallbladder fossa is favored to represent focal fatty sparing.
--- NOTE | 2018-01-26 09:14 | US ---
EXAMINATION TYPE: US transvaginal DATE OF EXAM: 01/26/2018 COMPARISON: US 06/13/2014 CLINICAL HISTORY: TRANSVAGINAL ULTRASOUND, PAIN. Painful, heavy periods TECHNIQUE: . Transabdominal sonographic images of the pelvis were acquired. Transvaginal sonographi c images were medically necessary to better assess the following anatomy: Date of LMP: 01/19/18 EXAM MEASUREMENTS: Uterus: 7.7 x 4.7 x 3.0 cm Endometrial Stripe: 0.5 cm Right Ovary: 3.1 x 2.5 x 2.2 cm Left Ovary: 1.6 x 1.1 x 1.1 cm 1. Uterus: Anteverted wnl 2. Endometrium: wnl 3. Right Ovary: hypoechoic dominant follicle measures 1.7 cm. 4. Left Ovary: wnl Spectral, color and waveform doppler imaging shows good arterial and venous flow within the ovaries ; there is no evidence for ovarian torsion. 5. Bilateral Adnexa: wnl 6. Posterior cul-de-sac: wnl IMPRESSION: No evidence of endometrial thickening. No identifiable uterine leiomyomas. Unremarkable a ppearance of the ovaries in a premenopausal female.
== END | disposition home or self-care (01) ==
LOC: RADUSWWP 07:34
PROVIDERS: ATTEND Internal Medicine
DX: R94.5 Abnormal results of liver function studies (principal); R10.2 Pelvic and perineal pain
CPT/HCPCS: 76705; 76830

== ENCOUNTER 2018-06-20 18:24 | Emergency (ER) | payer MEDICARE ==
[2018-06-20 18:30] VITALS: TEMP 98.7
[2018-06-20] MEDS ORDERED: SODIUM CHLORIDE 0.9% 1,000 ML IV STA (19:05)
[2018-06-20] MEDS ORDERED: METOCLOPRAMIDE 5 MG/ML 2 ML VIAL IVP STA (19:05)
[2018-06-20] MEDS ORDERED: KETOROLAC 30 MG/ML 1 ML VIAL IVP STA (19:05)
[2018-06-20] MEDS ORDERED: diphenhydrAMINE 50 MG CAP PO STA (19:05)
--- NOTE | 2018-06-20 19:10 | ED ---
General Adult HPI - General Chief complaint: Headache Stated complaint: Headache Time Seen by Provider: 06/20/18 18:34 Source: patient, RN notes reviewed Mode of arrival: ambulatory Limitations: no limitations - History of Present Illness Initial comments: 37-year-old female with a past medical history of Chiari malformation and pseudotumor cerebri presents to the emergency department for a chief complaint of headache 5 days. Patient states the pain is a unilateral left-sided headache. She admits to photosensitivity and sensitivity to sound. Patient states this pain is consistent with previous migraines, denies this being her worst headache. Patient states her Imitrex did not help earlier today. Patient denies any difficulty speaking or walking. Patient has no other complaints at this time including shortness of breath, chest pain, abdominal pain, nausea or vomiting, or visual changes. - Related Data Home Medications Medication Instructions Recorded Confirmed LORazepam [Ativan] 0.5 mg PO DAILY PRN 10/18/16 06/01/17 Levothyroxine Sodium [Synthroid] 125 mcg PO DAILY 10/18/16 06/01/17 Metoprolol Succinate (ER) [Toprol 25 mg PO DAILY 10/18/16 06/01/17 Xl] Hydrocodone/Acetaminophen [[place] 0.5 tab PO BID 02/26/17 06/01/17 5-325] Omeprazole 20 mg PO DAILY 06/01/17 06/01/17 SUMAtriptan SUCCINATE [Imitrex] 100 mg PO DAILY PRN 06/01/17 06/01/17 Zolpidem Tartrate [Ambien] 10 mg PO HS PRN 06/01/17 06/01/17 carBAMazepine [TEGretol] 200 mg PO BID 06/01/17 06/01/17 diphenhydrAMINE HCL [Benadryl] 25 mg PO DAILY PRN 06/01/17 06/01/17 Allergies Allergy/AdvReac Type Severity Reaction Status Date / Time house dust Allergy Itching Verified 06/20/18 18:26 shellfish derived [Shrimp] Allergy Anaphylaxis Verified 06/20/18 18:26 Review of Systems ROS Statement: Those systems with pertinent positive or pertinent negative responses have been documented in the HPI. ROS Other: All systems not noted in ROS Statement are negative. Past Medical History Past Medical History: Thyroid Disorder Additional Past Medical History / Comment(s): charimalformation, graves disease , pseudobrain tumor History of Any Multi-Drug Resistant Organisms: None Reported Past Surgical History: Back Surgery, Orthopedic Surgery, Tonsillectomy Additional Past Surgical History / Comment(s): thyroidectomy, C4-t1 laminectomy Past Psychological History: Anxiety, Depression Smoking Status: Former smoker Past Alcohol Use History: None Reported Past Drug Use History: None Reported General Exam Limitations: no limitations General appearance: alert, in no apparent distress Head exam: Present: atraumatic, normocephalic, normal inspection Eye exam: Present: normal appearance, PERRL, EOMI. Absent: scleral icterus, conjunctival injection, periorbital swelling ENT exam: Present: normal exam, normal oropharynx (Uvula midline), mucous membranes moist, TM's normal bilaterally, normal external ear exam Neck exam: Present: normal inspection, other (patient has c-collar on due to cervical surgery ). Absent: tenderness, meningismus, full ROM, lymphadenopathy Respiratory exam: Present: normal lung sounds bilaterally. Absent: respiratory distress, wheezes, rales, rhonchi, stridor Cardiovascular Exam: Present: regular rate, normal rhythm, normal heart sounds. Absent: systolic murmur, diastolic murmur, rubs, gallop, clicks GI/Abdominal exam: Present: soft, normal bowel sounds. Absent: distended, tenderness, guarding, rebound, rigid Neurological exam: Present: alert, oriented X3, CN II-XII intact, normal gait Expanded Patient oriented to: Present: person, place, time Speech: Present: fluid speech Cranial nerves: EOM's Intact: Normal, Tongue Deviation: Normal, Nystagmus: Normal, Facial Sensation: Normal Cerebellar function: Finger to Nose: Normal, Romberg: Normal Upper motor neuron: Pronator Drift: Normal Sensory exam: Upper Extremity Light Touch: Normal, Upper Extremity Pin Prick: Normal, Lower Extremity Light Touch: Normal, Lower Extremity Pin Prick: Normal Motor strength exam: RUE: 5, LUE: 5, RLE: 5, LLE: 5 Eye Response: (4) open spontaneously Motor Response: (6) obeys commands Verbal Response: (5) oriented [place] Total: 15 Psychiatric exam: Present: normal affect, normal mood Course Vital Signs 06/20/18 18:26 Temperature 98.7 F Pulse Rate 96 Respiratory 18 Rate Blood Pressure 137/87 O2 Sat by Pulse 98 Oximetry Medical Decision Making - Medical Decision Making 37-year-old female since to the emergency department for a chief complaint of migraine headache 5 days. Patient states this is consistent with previous migraines. She states it is unilateral on the left side and she has photosensitivity. Patient denies this being his worst headache. Patient does have a history of pseudotumor cerebri and cheery malformation. On exam no focal neuro deficits. Patient does not appear toxic. Patient refuses LP. Patient states she has been refusing LP from her neurosurgeon for months because she is afraid of the procedure and the risks. Patient was given migraine cocktail and pain decreased from a 10 to a 4. She states she is doing much better. Second neuro exam was done without deficits. Patient states she is ready to go home. She will take her home medications for pain at home. She will follow-up with her neurosurgeon at [place] and her neurologist Dr. Meier on Friday. She will return here if she has any worsening symptoms. Disposition Clinical Impression: Headache Disposition: HOME SELF-CARE Condition: Good Instructions: Migraine Headache (ED), Acute Headache (ED) Additional Instructions: Please take your home medications for pain. Please follow-up with Dr. Meier or your neurosurgeon on Friday. Please return here immediately if you have any worsening symptoms whatsoever. Is patient prescribed a controlled substance at d/c from ED?: No Referrals: Wendi Olguin MD [Primary Care Provider] - 1-2 days Mekhi Meier MD [STAFF PHYSICIAN] - 1-2 days Time of Disposition: 21:57
[2018-06-20] MEDS ORDERED: MORPHINE SULFATE 4 MG/ML SYRINGE IVP STA (20:41)
[2018-06-20 22:10] VITALS: BP 113/76; PULSE 84; RESP 16
== END 2018-06-20 22:09 | disposition home or self-care (01) ==
LOC: EC 18:24
DX: R51 Headache (principal); H53.149 Visual discomfort, unspecified; Q07.00 Arnold-Chiari syndrome without spina bifida or hydrocephalus; E05.00 Thyrotoxicosis with diffuse goiter without thyrotoxic crisis or storm; F32.9 Major depressive disorder, single episode, unspecified; Z87.891 Personal history of nicotine dependence; Z91.013 Allergy to seafood; Z91.048 Other nonmedicinal substance allergy status; Z79.891 Long term (current) use of opiate analgesic; Z79.899 Other long term (current) drug therapy; Z86.011 Personal history of benign neoplasm of the brain
CPT/HCPCS: 99283; 96374; 96375 ×2; 96361; J2270; J2765; J1885

== ENCOUNTER → 2018-06-30 | Outpatient (CLI) | payer MEDICARE | END | disposition home or self-care (01) | LOC: LABWHC1 12:14 | PROVIDERS: ATTEND Psychiatry & Neurology Pain Medicine | DX: M46.40 Discitis, unspecified, site unspecified (principal) | CPT/HCPCS: 36415; 85652; 86140 ==

== ENCOUNTER → 2018-08-19 | Outpatient (CLI) | payer MEDICARE, OTHER ==
--- NOTE | 2018-08-19 15:51 | XR ---
EXAMINATION TYPE: XR Hip Complete RT DATE OF EXAM: 08/19/2018 COMPARISON: 01/05/2013 HISTORY: Right hip pain TECHNIQUE: 2 view right hip FINDINGS: Femoral head articulates with the acetabulum. No acute fractures are evident. Joint spaces preserved. Follow-up exam can be performed 7-10 days from acute trauma for continued pain. IMPRESSION: 1. Normal 2 view right hip
== END | disposition home or self-care (01) ==
LOC: RADXRMAIN 12:46
PROVIDERS: ATTEND Physician Assistant
DX: M25.551 Pain in right hip (principal)
CPT/HCPCS: 73502

== ENCOUNTER → 2018-10-02 | Outpatient (CLI) | payer MEDICARE ==
[2018-10-02 18:26] LABS: ALT 33 U/L (8-44); AST 26 U/L (13-35); Albumin/Globulin Ratio 2.37 (1.60-3.17); Alkaline Phosphatase 140 U/L (41-126); Bilirubin, Conjugated <0.20 mg/dL (0.20-0.40); Globulin 1.9 g/dL (1.6-3.3); Total Bilirubin 0.2 mg/dL (0.2-1.2); Total Protein 6.4 g/dL (6.2-8.2)
== END | disposition home or self-care (01) ==
LOC: LABWHC1 13:48
DX: R74.8 Abnormal levels of other serum enzymes (principal)
CPT/HCPCS: 36415; 80076

== ENCOUNTER → 2018-10-19 | Outpatient (CLI) | payer MEDICARE ==
--- NOTE | 2018-10-19 09:00 | CT ---
EXAMINATION TYPE: CT sinus wo con DATE OF EXAM: 10/19/2018 COMPARISON: CT brain June 01, 2017. MR brain February 13, 2017 HISTORY: Chronic sinusitis per order. Left greater than right facial pain and numbness for months wit h headaches double vision and dizziness as well as multiple other symptoms per patient CT DLP: 609.4 mGycm. Automated Exposure Control for Dose Reduction was Utilized. TECHNIQUE: CT scan of the sinuses is performed without contrast, axial images are obtained, coronal r eformatted images are also reviewed. FINDINGS: There is hypoplastic or nonformed right frontal sinus redemonstrated. The paranasal sinuse s including the frontal, ethmoid, sphenoid, and maxillary sinuses bilaterally are well-aerated withou t abnormal opacification or suspicious air-fluid levels. The ostiomeatal complex is patent bilateral ly on the coronal images. Nasal septum remains slightly deviated to left of midline. Visualized portion of mastoid air cells show no abnormal opacification. The globes are intact bilate rally. Visualized portion of brain parenchyma is unremarkable. IMPRESSION: No significant acute or chronic paranasal sinus disease. No significant change from prior studies.
== END | disposition home or self-care (01) ==
LOC: RADCTMAIN 08:04
PROVIDERS: ATTEND Otolaryngology
DX: J32.9 Chronic sinusitis, unspecified (principal)
CPT/HCPCS: 70486

== ENCOUNTER → 2018-11-06 | Outpatient (CLI) | payer MEDICARE ==
--- NOTE | 2018-11-06 10:09 | US ---
EXAMINATION TYPE: US liver DATE OF EXAM: 11/06/2018 COMPARISON: US CLINICAL HISTORY: K76.0 FATTY CHANGE OF LIVER. Pt states H/O fatty liver EXAM MEASUREMENTS: Liver Length: 20.0 cm Gallbladder Wall: 0.2 cm CBD: 0.3 cm Right Kidney: 10.8 x 4.1 x 4.9 cm Pancreas: wnl, tail obscured by overlying bowel gas Liver: Enlarged, heterogeneous, difficult to penetrate, hypoechoic caudate lobe, probable fatty spar ing near GB Gallbladder: wnl Evidence for sonographic Harkins's sign: No CBD: wnl Right Kidney: wnl, lower pole gassed out IMPRESSION: Similar findings in comparison to exam of 01/26/2018 with enlarged and heterogenous liver m ost commonly related to hepatic steatosis with geographic area of probable focal fatty sparing near t he gallbladder fossa in a typical location for focal fatty sparing.
== END ==
LOC: RADUSWWP 09:09
DX: K76.0 Fatty (change of) liver, not elsewhere classified (principal)
CPT/HCPCS: 76705

== ENCOUNTER 2019-07-05 15:41 | Emergency (ER) | payer MEDICARE ==
[2019-07-05 15:50] VITALS: TEMP 97.7
[2019-07-05] MEDS ORDERED: ONDANSETRON 4 MG/2 ML VIAL IVP STA (16:07)
[2019-07-05] MEDS ORDERED: SODIUM CHLORIDE 0.9% 1,000 ML IV STA (16:07)
[2019-07-05] MEDS ORDERED: KETOROLAC 30 MG/ML 1 ML VIAL IVP STA (16:07)
[2019-07-05] MEDS ORDERED: diphenhydrAMINE 50 MG/ML 1 ML VIAL IVP STA (16:08)
--- NOTE | 2019-07-05 16:12 | ED ---
Headache HPI - General Chief Complaint: Headache Stated Complaint: dizzy, neck pain Time Seen by Provider: 07/05/19 15:51 Mode of arrival: ambulatory Limitations: no limitations - History of Present Illness Initial Comments: patient is a 38-year-old female presenting to emergency Department with complaints of neck pain and headache for the last week. Patient has history of cervical fusion from C4 to T1. Patient denies trauma or falls. Patient denies fever, vomiting, diarrhea. Patient states she does have a headache as well as mild intermittent nausea. Patient sees a neurologist out of [facility]. Patient denies blurry vision, numbness and tingling and upper extremities. Patient has no other complaints at this time. Upon arrival to ER, her vital signs are stable. - Related Data Home Medications Medication Instructions Recorded Confirmed LORazepam [Ativan] 0.5 mg PO DAILY PRN 10/18/16 06/01/17 Levothyroxine Sodium [Synthroid] 125 mcg PO DAILY 10/18/16 06/01/17 Metoprolol Succinate (ER) [Toprol 25 mg PO DAILY 10/18/16 06/01/17 Xl] Hydrocodone/Acetaminophen [[place] 0.5 tab PO BID 02/26/17 06/01/17 5-325] Omeprazole 20 mg PO DAILY 06/01/17 06/01/17 SUMAtriptan SUCCINATE [Imitrex] 100 mg PO DAILY PRN 06/01/17 06/01/17 Zolpidem Tartrate [Ambien] 10 mg PO HS PRN 06/01/17 06/01/17 carBAMazepine [TEGretol] 200 mg PO BID 06/01/17 06/01/17 diphenhydrAMINE HCL [Benadryl] 25 mg PO DAILY PRN 06/01/17 06/01/17 Allergies Allergy/AdvReac Type Severity Reaction Status Date / Time house dust Allergy Itching Verified 07/05/19 15:47 shellfish derived [Shrimp] Allergy Anaphylaxis Verified 07/05/19 15:47 Review of Systems ROS Statement: Those systems with pertinent positive or pertinent negative responses have been documented in the HPI. ROS Other: All systems not noted in ROS Statement are negative. Past Medical History Past Medical History: Thyroid Disorder Additional Past Medical History / Comment(s): charimalformation, graves disease, pseudobrain tumor History of Any Multi-Drug Resistant Organisms: None Reported Past Surgical History: Back Surgery, Orthopedic Surgery, Tonsillectomy Additional Past Surgical History / Comment(s): thyroidectomy, C4-t1 laminectomy Past Psychological History: Anxiety, Depression Smoking Status: Former smoker Past Alcohol Use History: None Reported Past Drug Use History: None Reported General Exam - General Exam Comments Initial Comments: GENERAL: Well-appearing, well-nourished and in no acute distress. HEAD: Atraumatic, normocephalic. EYES: Pupils equal round and reactive to light, extraocular movements intact, sclera anicteric, conjunctiva are normal. ENT: TMs normal, nares patent, oropharynx clear without exudates. Moist mucous membranes. NECK: pain with palpation of the bilateral cervical paraspinals as well as bilateral upper traps. There is muscle spasms on both sides. Patient has decreased cervical range of motion secondary to effusion. supple without lymphadenopathy or JVD. LUNGS: Breath sounds clear to auscultation bilaterally and equal. No wheezes rales or rhonchi. HEART: Regular rate and rhythm without murmurs, rubs or gallops. ABDOMEN: Soft, nontender, normoactive bowel sounds. No guarding, no rebound. No masses appreciated. : Deferred EXTREMITIES: Normal range of motion, no pitting or edema. No clubbing or cyanosis. NEUROLOGICAL: Cranial nerves II through XII grossly intact. Normal speech, normal gait. PSYCH: Normal mood, normal affect. SKIN: Warm, Dry, normal turgor, no rashes or lesions noted. Limitations: no limitations Course Vital Signs 07/05/19 07/05/19 15:47 17:50 Temperature 97.7 F Pulse Rate 87 83 Respiratory 16 18 Rate Blood Pressure 122/84 122/80 O2 Sat by Pulse 100 98 Oximetry Medical Decision Making - Medical Decision Making is a 38-year-old female presenting with neck pain, headache and mild nausea for the last few days. Patient has history of cervical fusion from C4 to T1. Patient sees neurologist out of [facility]. There are no red flag alarm symptoms today. Vital signs are normal. We'll no acute fractures or dislocations. Patient was given Toradol, fluids, Zofran, Benadryl reports improvement of symptoms. I discussed these findings with the patient. Patient will continue with her regular pain medicine and muscle relaxers at home. I suggested using heat and gentle massage in the areas well. If symptoms persist, patient will follow up with her neurologist. Patient is requesting to be discharged and is agreement with this plan of care. Return parameters were discussed with the patient she verbalized understanding. Disposition Clinical Impression: Headache, Neck pain Disposition: HOME SELF-CARE Condition: Stable Instructions (If sedation given, give patient instructions): Neck Pain (ED) Additional Instructions: Please return to the Emergency Department if symptoms worsen or any other concerns. Recommend gentle massage to the area as well as continuing with regular pain meds and muscle relaxers. Follow up with neurologist as symptoms persist. Is patient prescribed a controlled substance at d/c from ED?: No Referrals: Wendi Olguin MD [Primary Care Provider] - 1-2 days
--- NOTE | 2019-07-05 17:28 | XR ---
EXAMINATION TYPE: XR cervical spine comp DATE OF EXAM: 07/05/2019 COMPARISON: 02/21/2014 HISTORY: Neck pain TECHNIQUE: 5 views FINDINGS: There is posterior fusion surgery from C4 to T1 vertebra. There is normal alignment of the vertebra. There is mild degenerative disc space narrowing in the mid and lower cervical spine. There is no compression fracture. Atlantoaxial facet joint is normal. There are no cervical ribs. Neurofora jason are fairly well-maintained. IMPRESSION: Multilevel posterior fusion surgery. No complicating process seen. Mild multilevel spondy losis.
[2019-07-05 17:52] VITALS: BP 122/80; PULSE 83; RESP 18
== END 2019-07-05 17:50 | disposition home or self-care (01) ==
LOC: EC 15:41
DX: R51 Headache (principal); M54.2 Cervicalgia; R11.0 Nausea; R42 Dizziness and giddiness; E07.9 Disorder of thyroid, unspecified; Z98.1 Arthrodesis status; Z87.891 Personal history of nicotine dependence; Z79.890 Hormone replacement therapy; Z79.891 Long term (current) use of opiate analgesic; Z79.899 Other long term (current) drug therapy; Z91.048 Other nonmedicinal substance allergy status; Z91.013 Allergy to seafood
CPT/HCPCS: 99284; 96374; 96375 ×2; 72050; 96361; J1200; J2405; J1885

== ENCOUNTER 2019-08-09 16:30 | Emergency (ER) | payer MEDICARE ==
[2019-08-09 17:49] VITALS: TEMP 98.3
[2019-08-09] MEDS ORDERED: KETOROLAC 30 MG/ML 1 ML VIAL IVP STA (18:12)
[2019-08-09] MEDS ORDERED: diphenhydrAMINE 50 MG/ML 1 ML VIAL IVP STA (18:12)
[2019-08-09] MEDS ORDERED: SODIUM CHLORIDE 0.9% 1,000 ML IV STA (18:12)
[2019-08-09] MEDS ORDERED: METOCLOPRAMIDE 5 MG/ML 2 ML VIAL IVP STA (18:12)
--- NOTE | 2019-08-09 18:15 | ED ---
Headache HPI - General Chief Complaint: Headache Stated Complaint: Sob Time Seen by Provider: 08/09/19 17:58 Source: RN notes reviewed, old records reviewed Mode of arrival: ambulatory Limitations: no limitations - History of Present Illness Initial Comments: 39-year-old female presents emergency department today for complaints of headache for the past day, she reports that she used her injection of the galley yesterday but reports that since using that she is having some right-sided chest pain. Worse with taking a deep breath. - Related Data Home Medications Medication Instructions Recorded Confirmed LORazepam [Ativan] 0.5 mg PO DAILY PRN 10/18/16 06/01/17 Levothyroxine Sodium [Synthroid] 125 mcg PO DAILY 10/18/16 06/01/17 Metoprolol Succinate (ER) [Toprol 25 mg PO DAILY 10/18/16 06/01/17 Xl] Hydrocodone/Acetaminophen [[place] 0.5 tab PO BID 02/26/17 06/01/17 5-325] Omeprazole 20 mg PO DAILY 06/01/17 06/01/17 SUMAtriptan SUCCINATE [Imitrex] 100 mg PO DAILY PRN 06/01/17 06/01/17 Zolpidem Tartrate [Ambien] 10 mg PO HS PRN 06/01/17 06/01/17 carBAMazepine [TEGretol] 200 mg PO BID 06/01/17 06/01/17 diphenhydrAMINE HCL [Benadryl] 25 mg PO DAILY PRN 06/01/17 06/01/17 Previous Rx's Medication Instructions Recorded methylPREDNISolone Dose Pack 4 mg PO DIRECTED #21 package 08/09/19 [Medrol Dose Pack] Allergies Allergy/AdvReac Type Severity Reaction Status Date / Time house dust Allergy Itching Verified 08/09/19 17:48 shellfish derived [Shrimp] Allergy Anaphylaxis Verified 08/09/19 17:48 Review of Systems ROS Statement: Those systems with pertinent positive or pertinent negative responses have been documented in the HPI. ROS Other: All systems not noted in ROS Statement are negative. Past Medical History Past Medical History: Thyroid Disorder Additional Past Medical History / Comment(s): charimalformation, graves disease, pseudobrain tumor History of Any Multi-Drug Resistant Organisms: None Reported Past Surgical History: Back Surgery, Orthopedic Surgery, Tonsillectomy Additional Past Surgical History / Comment(s): thyroidectomy, C4-t1 laminectomy Past Psychological History: Anxiety, Depression Smoking Status: Former smoker Past Alcohol Use History: None Reported Past Drug Use History: None Reported General Exam - General Exam Comments Initial Comments: 39 year old female, no distress. Limitations: no limitations General appearance: alert, in no apparent distress Head exam: Present: atraumatic (family), normocephalic, normal inspection Eye exam: Present: normal appearance ENT exam: Present: normal exam, mucous membranes moist Neck exam: Present: normal inspection. Absent: tenderness, meningismus, lymphadenopathy Respiratory exam: Present: normal lung sounds bilaterally, other (tenderness over chest wall. ). Absent: respiratory distress, wheezes, rales, rhonchi, stridor Cardiovascular Exam: Present: regular rate, normal rhythm, normal heart sounds. Absent: systolic murmur, diastolic murmur, rubs, gallop, clicks GI/Abdominal exam: Present: soft, normal bowel sounds. Absent: distended, tenderness, guarding, rebound, rigid Extremities exam: Present: normal inspection, full ROM, normal capillary refill. Absent: tenderness, pedal edema, joint swelling, calf tenderness Back exam: Present: normal inspection Neurological exam: Present: alert, oriented X3, CN II-XII intact Psychiatric exam: Present: normal affect, normal mood Course Vital Signs 08/09/19 08/09/19 08/09/19 17:44 19:06 19:55 Temperature 98.3 F Pulse Rate 83 77 Respiratory 20 18 18 Rate Blood Pressure 127/91 102/60 O2 Sat by Pulse 100 95 Oximetry 08/09/19 20:52 Temperature 98.3 F Pulse Rate 84 Respiratory 18 Rate Blood Pressure 108/65 O2 Sat by Pulse 95 Oximetry Medical Decision Making - Medical Decision Making 39 year old female with migraine headache and right sided chest pain. Patient chest pain is reproducible likely costochondritis. PAtient labs are unremarkable. PAtient troponin and Dimer is negative. CXR is unremarkable. She has improvement after migraine cocktail. Disucssed return parameters and neurology follow up. - Lab Data Result diagrams: 08/09/19 18:58 08/09/19 18:58 Lab Results 08/09/19 08/09/19 08/09/19 Range/Units 18:58 18:58 18:58 WBC 7.7 (3.8-10.6) k/uL RBC 4.09 (3.80-5.40) m/uL Hgb 12.9 (11.4-16.0) gm/dL Hct 38.7 (34.0-46.0) % MCV 94.5 (80.0-100.0) fL MCH 31.5 (25.0-35.0) pg MCHC 33.3 (31.0-37.0) g/dL RDW 12.4 (11.5-15.5) % Plt Count 239 (150-450) k/uL Neutrophils % 57 % Lymphocytes % 33 % Monocytes % 5 % Eosinophils % 2 % Basophils % 0 % Neutrophils # 4.4 (1.3-7.7) k/uL Lymphocytes # 2.5 (1.0-4.8) k/uL Monocytes # 0.4 (0-1.0) k/uL Eosinophils # 0.1 (0-0.7) k/uL Basophils # 0.0 (0-0.2) k/uL PT 9.8 (9.0-12.0) sec INR 0.9 (<1.2) APTT 23.0 (22.0-30.0) sec D-Dimer 0.29 (<0.60) mg/L FEU Sodium 140 (137-145) mmol/L Potassium 4.1 (3.5-5.1) mmol/L Chloride 109 H (98-107) mmol/L Carbon Dioxide 23 (22-30) mmol/L Anion Gap 8 mmol/L BUN 15 (7-17) mg/dL Creatinine 0.76 (0.52-1.04) mg/dL Est GFR (CKD-EPI)AfAm >90 (>60 ml/min/1.73 sqM) Est GFR (CKD-EPI)NonAf >90 (>60 ml/min/1.73 sqM) Glucose 103 H (74-99) mg/dL Calcium 9.1 (8.4-10.2) mg/dL Magnesium 2.2 (1.6-2.3) mg/dL Total Bilirubin 0.3 (0.2-1.3) mg/dL AST 26 (14-36) U/L ALT 20 (4-34) U/L Alkaline Phosphatase 125 (38-126) U/L Troponin I (0.000-0.034) ng/mL Total Protein 7.0 (6.3-8.2) g/dL Albumin 4.3 (3.5-5.0) g/dL 08/09/19 Range/Units 18:58 WBC (3.8-10.6) k/uL RBC (3.80-5.40) m/uL Hgb (11.4-16.0) gm/dL Hct (34.0-46.0) % MCV (80.0-100.0) fL MCH (25.0-35.0) pg MCHC (31.0-37.0) g/dL RDW (11.5-15.5) % Plt Count (150-450) k/uL Neutrophils % % Lymphocytes % % Monocytes % % Eosinophils % % Basophils % % Neutrophils # (1.3-7.7) k/uL Lymphocytes # (1.0-4.8) k/uL Monocytes # (0-1.0) k/uL Eosinophils # (0-0.7) k/uL Basophils # (0-0.2) k/uL PT (9.0-12.0) sec INR (<1.2) APTT (22.0-30.0) sec D-Dimer (<0.60) mg/L FEU Sodium (137-145) mmol/L Potassium (3.5-5.1) mmol/L Chloride (98-107) mmol/L Carbon Dioxide (22-30) mmol/L Anion Gap mmol/L BUN (7-17) mg/dL Creatinine (0.52-1.04) mg/dL Est GFR (CKD-EPI)AfAm (>60 ml/min/1.73 sqM) Est GFR (CKD-EPI)NonAf (>60 ml/min/1.73 sqM) Glucose (74-99) mg/dL Calcium (8.4-10.2) mg/dL Magnesium (1.6-2.3) mg/dL Total Bilirubin (0.2-1.3) mg/dL AST (14-36) U/L ALT (4-34) U/L Alkaline Phosphatase (38-126) U/L Troponin I <0.012 (0.000-0.034) ng/mL Total Protein (6.3-8.2) g/dL Albumin (3.5-5.0) g/dL 08/09/19 19:11 EKG shows normal sinus rhythm abnormal EKG. Ventricular rate is 74 beats were minute period. Interval is 162 ms. QRS ration 76 most seconds. QTQTC 366/106 ms. Disposition Clinical Impression: Headache, Costochondritis Disposition: HOME SELF-CARE Condition: Good Instructions (If sedation given, give patient instructions): Costochondritis (ED), Acute Headache (ED) Additional Instructions: Please use medication as discussed. Please follow up with family doctor if sym ptoms have not improved over the next two days. Please return to the emergency room if your symptoms increase or worsen or for any other concerns. Prescriptions: methylPREDNISolone Dose Pack [Medrol Dose Pack] 4 mg PO DIRECTED #21 package Is patient prescribed a controlled substance at d/c from ED?: No Referrals: Wendi Olguin MD [Primary Care Provider] - 1-2 days Time of Disposition: 20:49
[2019-08-09 19:08] VITALS: RESP 18
[2019-08-09 19:30] LABS: Basophils % (A) 0 %; Eosinophils # (A) 0.1 k/uL (0-0.7); Eosinophils % (A) 2 %; HCT 38.7 % (34.0-46.0); HGB 12.9 gm/dL (11.4-16.0); Lymphocytes # (A) 2.5 k/uL (1.0-4.8); Lymphocytes % (A) 33 %; MCH 31.5 pg (25.0-35.0); MCHC 33.3 g/dL (31.0-37.0); MCV 94.5 fL (80.0-100.0); Mean Platelet Volume 7.5; Monocytes # (A) 0.4 k/uL (0-1.0); Monocytes % (A) 5 %; Neutrophils # (A) 4.4 k/uL (1.3-7.7); Neutrophils % (A) 57 %; Platelet Count 239 k/uL (150-450); RBC 4.09 m/uL (3.80-5.40); RDW 12.4 % (11.5-15.5); WBC 7.7 k/uL (3.8-10.6)
[2019-08-09 19:38] LABS: ALT 20 U/L (4-34); AST 26 U/L (14-36); African American GFR (CKD) >90 (>60 ml/min/1.73 sqM); Albumin 4.3 g/dL (3.5-5.0); Alkaline Phosphatase 125 U/L (38-126); Anion Gap 8 mmol/L; Blood Urea Nitrogen 15 mg/dL (7-17); Calcium 9.1 mg/dL (8.4-10.2); Carbon Dioxide 23 mmol/L (22-30); Chloride 109 mmol/L (98-107); Glucose 103 mg/dL (74-99); Magnesium 2.2 mg/dL (1.6-2.3); Non-African American GFR(CKD) >90 (>60 ml/min/1.73 sqM); Potassium 4.1 mmol/L (3.5-5.1); Sodium 140 mmol/L (137-145); Total Bilirubin 0.3 mg/dL (0.2-1.3)
[2019-08-09 19:40] LABS: D-Dimer 0.29 mg/L FEU (<0.60); INR 0.9 (<1.2); Prothrombin Time 9.8 sec (9.0-12.0)
--- NOTE | 2019-08-09 19:54 | XR ---
EXAMINATION TYPE: XR chest 2V DATE OF EXAM: 08/09/2019 COMPARISON: 12/21/2016 HISTORY: Chest pain TECHNIQUE: FINDINGS: Heart and mediastinum are normal. Lungs are clear. Diaphragm is normal. Bony thorax is inta ct. There are chest leads. IMPRESSION: Normal chest. No change.
[2019-08-09 20:54] VITALS: BP 108/65; PULSE 84
== END 2019-08-09 20:58 | disposition home or self-care (01) ==
LOC: EC 16:30
DX: M94.0 Chondrocostal junction syndrome [Tietze] (principal); G43.909 Migraine, unspecified, not intractable, without status migrainosus; E05.00 Thyrotoxicosis with diffuse goiter without thyrotoxic crisis or storm; F32.9 Major depressive disorder, single episode, unspecified; Z87.891 Personal history of nicotine dependence; Z91.013 Allergy to seafood; Z91.048 Other nonmedicinal substance allergy status; Z79.890 Hormone replacement therapy; Z79.891 Long term (current) use of opiate analgesic; Z79.899 Other long term (current) drug therapy
CPT/HCPCS: 99284; 96374; 96375 ×2; 96361; 36415; 93005; 85379; 80053; 83735; 84484; 85025; 85610; 85730; 71046; J1200; J2765; J1885

== ENCOUNTER 2020-05-06 14:42 | Emergency (ER) | payer MEDICARE ==
[2020-05-06 15:04] VITALS: RESP 18; TEMP 98
[2020-05-06] MEDS ORDERED: METOCLOPRAMIDE 5 MG/ML 2 ML VIAL IVP STA (15:32)
[2020-05-06] MEDS ORDERED: KETOROLAC 15 MG/ML 1 ML VIAL IVP STA (15:32)
[2020-05-06] MEDS ORDERED: diphenhydrAMINE 50 MG/ML 1 ML VIAL IVP STA (15:32)
[2020-05-06] MEDS ORDERED: SODIUM CHLORIDE 0.9% 1,000 ML IV STA (15:32)
[2020-05-06 15:54] LABS: Basophils # (A) 0.1 k/uL (0-0.2); Basophils % (A) 1 %; Eosinophils # (A) 0.3 k/uL (0-0.7); Eosinophils % (A) 3 %; HGB 14.6 gm/dL (11.4-16.0); Lymphocytes # (A) 2.6 k/uL (1.0-4.8); Lymphocytes % (A) 23 %; MCH 31.5 pg (25.0-35.0); MCHC 31.8 g/dL (31.0-37.0); MCV 99.1 fL (80.0-100.0); Mean Platelet Volume 7.1; Monocytes # (A) 0.6 k/uL (0-1.0); Monocytes % (A) 5 %; Neutrophils # (A) 7.9 k/uL (1.3-7.7); Neutrophils % (A) 68 %; Platelet Count 296 k/uL (150-450); RBC 4.64 m/uL (3.80-5.40); RDW 12.9 % (11.5-15.5); WBC 11.7 k/uL (3.8-10.6)
[2020-05-06 15:55] LABS: Appearance,Urine Clear (Clear); Bilirubin,Urine Negative (Negative); Blood,Urine Negative (Negative); Color,Urine Light Yellow; Glucose,Urine (UA) Negative (Negative); Ketones,Urine Negative (Negative); Leukocyte Esterase,Urine Negative (Negative); Nitrite,Urine Negative (Negative); Protein,Urine Negative (Negative); Specific Gravity,Urine 1.005 (1.001-1.035); Urobilinogen,Urine <2.0 mg/dL (<2.0)
[2020-05-06 16:11] LABS: ALT 17 U/L (4-34); AST 30 U/L (14-36); African American GFR (CKD) >90 (>60 ml/min/1.73 sqM); Albumin 4.6 g/dL (3.5-5.0); Alkaline Phosphatase 113 U/L (38-126); Anion Gap 9 mmol/L; Blood Urea Nitrogen 19 mg/dL (7-17); Calcium 9.6 mg/dL (8.4-10.2); Carbon Dioxide 21 mmol/L (22-30); Chloride 111 mmol/L (98-107); Glucose 101 mg/dL (74-99); Non-African American GFR(CKD) >90 (>60 ml/min/1.73 sqM); Sodium 141 mmol/L (137-145); Total Bilirubin 0.5 mg/dL (0.2-1.3); Total Protein 7.7 g/dL (6.3-8.2)
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
[2020-05-06 16:18] LABS: Potassium 4.4 mmol/L (3.5-5.1)
[2020-05-06] MEDS ORDERED: HYDROcodone/APAP 10-325MG 1 EACH TAB PO ONE (17:25)
[2020-05-06] MEDS ORDERED: methocarbamoL 750 MG TAB PO STA (17:25)
--- NOTE | 2020-05-06 17:26 | CT ---
EXAMINATION TYPE: CT brain cspine wo con DATE OF EXAM: 05/06/2020 COMPARISON: CT brain 06/01/2017 HISTORY: DIZZINESS AND MAZARIEGOS CT DLP: 1303.3 mGycm Automated exposure control for dose reduction was used. There is old occipital craniotomy defect. Ventricles have normal size. There is no mass effect nor mi dline shift. There is no sign of intracranial hemorrhage. There is no evidence of cerebral edema. The cervical vertebra show normal alignment. There is multilevel posterior fusion surgery from C4 to T1 vertebra. There is multilevel cervical laminectomy defect. There is disc space narrowing from C4 t o T1. There is spurring of the endplates. Prevertebral soft tissues are intact. IMPRESSION: Previous occipital craniotomy. Multilevel posterior cervical spine fusion surgery. No acute abnormality of the cervical spine. No fracture. No acute abnormality of the brain and no change compared to old exam.
[2020-05-06] MEDS ORDERED: MECLIZINE 12.5 MG TAB PO STA (17:53)
[2020-05-06 18:31] VITALS: BP 118/88; PULSE 72
== END 2020-05-06 18:41 | disposition home or self-care (01) ==
LOC: EC 14:42
DX: R42 Dizziness and giddiness (principal); G43.909 Migraine, unspecified, not intractable, without status migrainosus; E89.0 Postprocedural hypothyroidism; F17.200 Nicotine dependence, unspecified, uncomplicated; Z79.899 Other long term (current) drug therapy; Z79.890 Hormone replacement therapy; Z91.013 Allergy to seafood; Z91.048 Other nonmedicinal substance allergy status; Z98.1 Arthrodesis status
CPT/HCPCS: 36415; 93005; 80053; 84443; 83605; 84484; 85025; 81003; 81025; 72125; 70450; 99285; 96374; 96375 ×2; 96361; J1200; J2765; J1885

== ENCOUNTER → 2020-12-27 | Outpatient (CLI) | payer MEDICARE ==
--- NOTE | 2020-12-27 22:03 | CT ---
EXAMINATION TYPE: CT cervical spine wo/w con DATE OF EXAM: 12/27/2020 COMPARISON: 05/06/2020 HISTORY: lesion of left shoulder CT DLP: 3637.50 combined with shoulder mGycm CONTRAST: Performed with IV Contrast, patient injected with 100 mL of Isovue 300. CT of the cervical spine is performed in the axial plane at 2 mm thick sections. Reconstructed image s in the coronal, and sagittal plane are reviewed on the computer. No acute fractures are evident. Note is made of a occipital craniotomy. Postsurgical changes are present through the posterior cervical spine with laminectomy C4-T1 and pedi chinmay screws placed at C4-5-6 and T1 Vertebral body alignment is normal. Disc heights are preserved. Vertebral body heights are preserved. There is a small left paracentral endplate spur with mild anterior thecal sac compression seen to 3. Uncovertebral joint hypertrophy is contributing to bilateral foraminal stenosis C4-5 some endplate ch anges centrally at C5-6 moderate anterior thecal sac compression. No AP stenosis is present at the la minectomy level. Milder left paracentral endplate spurring is present at C6-7 without AP spinal canal stenosis at this laminectomy level. Foraminal narrowing however is present bilaterally Following contrast no suspicious enhancement is evident. IMPRESSIONS: 1. Postsurgical laminectomy changes. 2. Endplate spurring C4-5 C5-6 without AP spinal canal stenosis. 3. Uncovertebral joint hypertrophy contributing to foraminal narrowing discussed above.
--- NOTE | 2020-12-28 21:57 | CT ---
EXAMINATION TYPE: CT shoulder LT wo/w con DATE OF EXAM: 12/27/2020 COMPARISON: HISTORY: lesion on left shoulder CT DLP: 3637.50 combined with cspine mGycm Automated exposure control for dose reduction was used. Contrast: None Technique: Axial images 3 mm thick sections. Reconstructed images in the coronal and sagittal planes. FINDINGS: Humeral head articulates with the glenoid. Joint space is somewhat narrowed. No acute fractures evide nt. Scapula appears intact. Clavicle appears normal. Acromioclavicular junction is normal. No joint e ffusion is evident. Small axillary lymph nodes are present. Lung windows within the field of view are clear There is a lucency within the anterior glenoid. This has sclerotic margins. This is a fat density. Sm all intraosseous lipoma is likely present. IMPRESSION: 1. NO ACUTE OSSEOUS ABNORMALITY. SMALL INTRAOSSEOUS LIPOMA MAY BE AT THE ANTERIOR GLENOID.
== END | disposition home or self-care (01) ==
LOC: RADCTMAIN 13:09
PROVIDERS: ATTEND Psychiatry & Neurology Neurology
DX: D17.22 Benign lipomatous neoplasm of skin and subcutaneous tissue of left arm (principal); M47.812 Spondylosis without myelopathy or radiculopathy, cervical region
CPT/HCPCS: 72127; 73202; Q9967

== ENCOUNTER 2021-01-23 17:33 | Emergency (ER) | payer MEDICARE ==
[2021-01-23 17:58] VITALS: BP 123/84; PULSE 92; RESP 16; TEMP 98.6
[2021-01-23] MEDS ORDERED: KETOROLAC 15 MG/ML 1 ML VIAL IM STA (18:44)
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
== END 2021-01-23 20:00 | disposition home or self-care (01) ==
LOC: EC 17:33
DX: S16.1XXA Strain of muscle, fascia and tendon at neck level, initial encounter (principal); F17.200 Nicotine dependence, unspecified, uncomplicated; E07.9 Disorder of thyroid, unspecified; F32.9 Major depressive disorder, single episode, unspecified; V89.2XXA Person injured in unspecified motor-vehicle accident, traffic, initial encounter
CPT/HCPCS: 72072; 72050; 71046; 99283; 96372; J1885

== ENCOUNTER 2021-04-16 13:43 | Emergency (ER) | payer MEDICARE ==
[2021-04-16 14:24] VITALS: TEMP 98.3
--- NOTE | 2021-04-16 15:27 | XR ---
EXAMINATION TYPE: XR chest 2V DATE OF EXAM: 04/16/2021 COMPARISON: Chest x-ray January 23, 2021 HISTORY: Cough congestion and shortness of breath. TECHNIQUE: Frontal and lateral views of the chest are obtained. FINDINGS: There is no suspicious focal air space opacity, pleural effusion, or pneumothorax seen. T he cardiac silhouette size is stable and within normal limits. Surgical changes to the cervical spine is partially imaged. IMPRESSION: No acute cardiopulmonary process. No significant change from prior.
--- NOTE | 2021-04-16 16:18 | ED ---
General Adult HPI - General Chief complaint: Upper Respiratory Infection Stated complaint: Chest Congestion,Fever Time Seen by Provider: 04/16/21 14:40 Source: patient, RN notes reviewed Mode of arrival: ambulatory Limitations: no limitations - History of Present Illness Initial comments: Patient is a 40-year-old female presenting to the emergency Department with complaints of cough, congestion and soreness in her chest when she coughs or moves around. She states been going on for 2 days. She denies any fevers or chills. She does have history of neck fusion still is constantly having some stiffness but no more than usual. She does admit to some mild shortness of breath with exertion, no shortness of breath at rest. She denies any abdominal pain, no nausea or vomiting, no diarrhea. She still been eating and drinking as normal. She did try an ibuprofen yesterday without improvement. She denies any falls or trauma. She has no further complaints at this time. Her vital signs are stable upon arrival. - Related Data Home Medications Medication Instructions Recorded Confirmed Metoprolol Succinate (ER) [Toprol 25 mg PO DAILY 10/18/16 05/06/20 Xl] SUMAtriptan SUCCINATE [Imitrex] 100 mg PO DAILY PRN 06/01/17 05/06/20 Zolpidem Tartrate [Ambien] 10 mg PO HS PRN 06/01/17 05/06/20 HYDROcodone/APAP 10-325MG [[place] 1 tab PO TID PRN 05/06/20 05/06/20 10-325] Levothyroxine Sodium [Synthroid] 137 mcg PO DAILY 05/06/20 05/06/20 Methocarbamol [Robaxin-750] 750 mg PO Q8H PRN 05/06/20 05/06/20 Rizatriptan Benzoate [Maxalt] 10 mg PO DAILY PRN 05/06/20 05/06/20 acetaZOLAMIDE [Diamox] 125 mg PO DAILY 05/06/20 05/06/20 carBAMazepine [TEGretol XR] 400 mg PO DAILY 05/06/20 05/06/20 Previous Rx's Medication Instructions Recorded predniSONE [Deltasone] 20 mg PO DAILY 5 Days #5 tab 04/16/21 Allergies Allergy/AdvReac Type Severity Reaction Status Date / Time house dust Allergy Itching Verified 04/16/21 14:24 shellfish derived [Shrimp] Allergy Anaphylaxis Verified 04/16/21 14:24 Review of Systems ROS Statement: Those systems with pertinent positive or pertinent negative responses have been documented in the HPI. ROS Other: All systems not noted in ROS Statement are negative. Past Medical History Past Medical History: Thyroid Disorder Additional Past Medical History / Comment(s): charimalformation, graves disease, pseudobrain tumor History of Any Multi-Drug Resistant Organisms: None Reported Past Surgical History: Back Surgery, Orthopedic Surgery, Tonsillectomy Additional Past Surgical History / Comment(s): thyroidectomy, C4-t1 laminectomy, neck fusion C4-T1 Past Psychological History: Anxiety, Depression Smoking Status: Current every day smoker Past Alcohol Use History: None Reported Past Drug Use History: None Reported General Exam - General Exam Comments Initial Comments: GENERAL: Patient is well-developed and well-nourished. Patient is nontoxic and in no acute distress. HEAD: Atraumatic, normocephalic. EYES: Pupils equal round and reactive to light, extraocular movements intact, sclera anicteric, conjunctiva are normal. Eyelids were unremarkable. ENT: Nares patent, oropharynx clear without exudates. Moist mucous membranes. NECK: Normal range of motion, supple without lymphadenopathy or JVD. LUNGS: Unlabored respirations. Breath sounds clear to auscultation bilaterally and equal. No wheezes rales or rhonchi. HEART: Regular rate and rhythm without murmurs, rubs or gallops. ABDOMEN: Soft, nontender, normoactive bowel sounds. No guarding, no rebound. No masses appreciated. : Deferred MUSCULOSKELETAL: Normal extremities with adequate strength and normal range of motion, no pitting or edema. No clubbing or cyanosis. Discomfort with palpation of the anterior chest wall and sternal area. Increased pain with cough and deep inhalation. NEUROLOGICAL: Patient is alert and oriented x 3. SKIN: Warm, Dry, normal turgor, no rashes or lesions noted. Limitations: no limitations Course Vital Signs 04/16/21 14:20 Temperature 98.3 F Pulse Rate 76 Respiratory 20 Rate Blood Pressure 118/75 O2 Sat by Pulse 100 Oximetry Medical Decision Making - Medical Decision Making Patient is a 40-year-old female here with cough, congestion and pain with deep inhalation. Her vitals are stable, no fevers. Her exam was consistent with costochondritis. Chest x-ray reveals no acute process, swabs are negative for RSV, covid, influenza. Discussed these findings with the patient. Patient states she has had costochondritis in the past and this does feel similar. I recommended short course of steroids, Aleve for any discomfort. She can also try ice and/or heat to the area. She is in agreement with this plan of care. Return parameters were discussed with her and she verbalized understanding. Case discussed with Dr. Good - Lab Data Lab Results 04/16/21 Range/Units 14:53 Influenza Type A (PCR) Not Detected (Not Detectd) Influenza Type B (PCR) Not Detected (Not Detectd) RSV (PCR) Not Detected (Not Detectd) SARS-CoV-2 (PCR) Not Detected (Not Detectd) Disposition Clinical Impression: Viral respiratory illness, Costochondritis Disposition: HOME SELF-CARE Condition: Stable Instructions (If sedation given, give patient instructions): Costochondritis (ED) Additional Instructions: Please return to the Emergency Department if symptoms worsen or any other concerns. Recommend short course of steroids as prescribed. May take Aleve for any discomfort, may apply heat and/or ice the area as well. Follow-up with your primary care. Prescriptions: predniSONE [Deltasone] 20 mg PO DAILY 5 Days #5 tab Is patient prescribed a controlled substance at d/c from ED?: No Referrals: Wendi Olguin MD [Primary Care Provider] - 1-2 days Time of Disposition: 16:18
[2021-04-16 16:28] VITALS: BP 109/70; PULSE 71; RESP 18
== END 2021-04-16 16:29 | disposition home or self-care (01) ==
LOC: EC 13:43
DX: J06.9 Acute upper respiratory infection, unspecified (principal); J98.8 Other specified respiratory disorders; M94.0 Chondrocostal junction syndrome [Tietze]; F17.200 Nicotine dependence, unspecified, uncomplicated; F41.9 Anxiety disorder, unspecified; F32.9 Major depressive disorder, single episode, unspecified
CPT/HCPCS: 71046; 87636; 99285